=== PATIENT | male | born 1960 | race Caucasian/White ===

== ENCOUNTER → 2019-10-28 07:18 | Outpatient (CLI) | payer BC, SELFPAY ==
[2019-09-27 13:41] VITALS: BMI 30.2
[2019-10-28 08:55] LABS: ALB/GLOB Ratio 1.1 RATIO (0.9-2.4); AST(SGOT) 15 U/L (15-37); Alanine Aminotransfer ALT/SGPT 29 U/L (16-61); Albumin, Serum 3.9 g/dL (3.2-5.0); Alkaline Phosphatase 80 U/L (45-117); Anion Gap 4 (5-15); BUN 17 mg/dL (7-18); BUN/Creat Ratio 16.8 RATIO (10-20); Calcium,Total 8.7 mg/dL (8.5-10.1); Chloride 104 mmol/L (98-107); Cholesterol 219 mg/dL (200); Creatinine, Serum 1.01 mg/dL (0.70-1.30); EST Glomerular Filtration Rate 81 mL/min (>60); Est Glom Filt Rate - Afr Amer 98 mL/min (>60); Globulin 3.6 g/dL (2.2-4.2); Glucose 118 mg/dL (74-106); High Density Lipoprotein 33 mg/dL; Potassium 3.7 mmol/L (3.5-5.1); Protein, Total 7.5 g/dL (6.4-8.2); Sodium Level 138 mmol/L (136-145); Triglycerides 218 mg/dL; Very Low Density Lipoprotein 44 mg/dL (5-40)
--- NOTE | 2019-10-29 07:29 | PFT ---
INTRODUCTION: The patient is a 59-year-old male that presents for pulmonary function studies secondary to a diagnosis of cough. Respiratory therapy reports good patient effort. Bronchodilators were used during testing. INTERPRETATION: Forced expiration spirometry demonstrates no evidence of a large airways obstructive ventilatory defect. There was no significant response to aerosolized bronchodilators, based upon strict ATS criteria. Spirograms are of good quality and plateau gradually indicating slow emptying of the lungs. The respiratory flow volume loop appears normal. Body plethysmography was performed and reveals lung volumes to be within normal limits. Diffusing capacity by single breath CO is also within normal limits as well. IMPRESSION: Normal pulmonary function studies.
== END ==
PROVIDERS: PCP Family Medicine; Referring Provider Family Medicine; Visit Provider Family Medicine
DX: I10 Essential (primary) hypertension (principal); R05 Cough
CPT/HCPCS: 36415; 80053; 80061; 94060; 94726; 94729

== ENCOUNTER → 2020-12-27 11:39 | Outpatient (CLI) | payer BC, SELFPAY ==
[2019-09-27 13:41] VITALS: BMI 30.2
[2020-12-27 15:45] LABS: ALB/GLOB Ratio 1.2 RATIO (0.9-2.4); AST(SGOT) 15 U/L (15-37); Alanine Aminotransfer ALT/SGPT 30 U/L (16-61); Albumin, Serum 3.9 g/dL (3.2-5.0); Alkaline Phosphatase 95 U/L (45-117); Anion Gap 3 (5-15); BUN 11 mg/dL (7-18); BUN/Creat Ratio 12.8 RATIO (10-20); Calcium,Total 8.6 mg/dL (8.5-10.1); Chloride 104 mmol/L (98-107); Cholesterol 113 mg/dL (200); Creatinine, Serum 0.86 mg/dL (0.70-1.30); EST Glomerular Filtration Rate 97 mL/min (>60); Est Glom Filt Rate - Afr Amer 117 mL/min (>60); Globulin 3.3 g/dL (2.2-4.2); Glucose 102 mg/dL (74-106); High Density Lipoprotein 38 mg/dL; PSA,Total - Annual Screen 2.94 ng/mL (0.00-4.00); Potassium 3.5 mmol/L (3.5-5.1); Protein, Total 7.2 g/dL (6.4-8.2); Sodium Level 137 mmol/L (136-145); Triglycerides 86 mg/dL; Very Low Density Lipoprotein 17 mg/dL (5-40)
== END ==
PROVIDERS: PCP Family Medicine; Referring Provider Family Medicine; Visit Provider Family Medicine
DX: E78.00 Pure hypercholesterolemia, unspecified (principal); Z12.5 Encounter for screening for malignant neoplasm of prostate
CPT/HCPCS: 36415; 80053; 80061; 84153; G0103

== ENCOUNTER → 2021-07-03 08:18 | Outpatient (CLI) | payer OTHER, SELFPAY ==
[2021-07-03 10:31] LABS: Anion Gap 7 (5-15); BUN 14 mg/dL (7-18); BUN/Creat Ratio 16.5 RATIO (10-20); Calcium,Total 8.5 mg/dL (8.5-10.1); Chloride 105 mmol/L (98-107); Creatinine, Serum 0.85 mg/dL (0.70-1.30); EST Glomerular Filtration Rate 98 mL/min (>60); Est Glom Filt Rate - Afr Amer 119 mL/min (>60); Glucose 120 mg/dL (74-106); Potassium 3.5 mmol/L (3.5-5.1); Sodium Level 139 mmol/L (136-145)
== END ==
PROVIDERS: PCP Nurse Practitioner Family; Referring Provider Nurse Practitioner Family; Visit Provider Nurse Practitioner Family
DX: Z00.00 Encounter for general adult medical examination without abnormal findings (principal)
CPT/HCPCS: 36415; 80048

== ENCOUNTER → 2021-09-01 17:28 | Outpatient (CLI) | payer OTHER, SELFPAY | PROVIDERS: PCP Nurse Practitioner Family; Visit Provider Family Medicine | DX: U07.1 COVID-19 (principal) | CPT/HCPCS: 87635; U0005; U0003 ==

== ENCOUNTER → 2022-02-09 | Outpatient (CLI) | payer BC, SELFPAY ==
[2022-02-09 15:23] LABS: Absolute Lymphocyte Count 1.01 X10^3/uL (0.83-4.51); Absolute Neutrophil Count 2.8 X10^3/uL (2.0-7.7); Basophil# 0.05 X10^3/uL; Basophil% 1.1 % (0-1); Eosinophil# 0.14 X10^3/uL; Eosinophils% 3.2 % (0-5); Hematocrit 44.2 % (40-54); Hemoglobin 15.3 g/dL (13.0-16.5); Lymphocyte # 1.01 X10^3/ul (0.83-4.51); Lymphocyte % 23.2 % (19-41); Mean Corp Hgb Conc 34.6 g/dL (32-36); Mean Corpuscular Hgb 30.8 pg (27.0-32.0); Mean Corpuscular Volume 89.1 fL (80-94); Mean Platelet Vol. 9.5 fl (6.2-12.0); Monocyte# 0.36 X10^3/uL; Monocyte% 8.3 % (0-10); NRBC Flagged by Analyzer 0 % (0-5); Neutrophil # 2.78 X10^3/uL (2.7-7.7); Platelet Count 183 K/mm3 (150-450); RBC Distribution Width CV 12.7 % (11.6-14.6); RBC Distribution Width SD 41.2 fl (35.1-43.9); Red Blood Count 4.96 M/mm3 (4.6-6.2); White Blood Count 4.4 K/mm3 (4.4-11.0)
[2022-02-09 15:51] LABS: ALB/GLOB Ratio 1.1 RATIO (0.9-2.4); AST(SGOT) 19 U/L (15-37); Alanine Aminotransfer ALT/SGPT 39 U/L (16-61); Albumin, Serum 3.9 g/dL (3.2-5.0); Alkaline Phosphatase 73 U/L (45-117); Anion Gap 9 (5-15); BUN 13 mg/dL (7-18); BUN/Creat Ratio 13.2 RATIO (10-20); Calcium,Total 8.5 mg/dL (8.5-10.1); Chloride 105 mmol/L (98-107); Cholesterol 146 mg/dL (200); Creatinine, Serum 0.99 mg/dL (0.70-1.30); EST Glomerular Filtration Rate 82 mL/min (>60); Est Glom Filt Rate - Afr Amer 100 mL/min (>60); Globulin 3.5 g/dL (2.2-4.2); Glucose 157 mg/dL (74-106); High Density Lipoprotein 36 mg/dL; PSA,Total - Annual Screen 3.57 ng/mL (0.00-4.00); Potassium 3.4 mmol/L (3.5-5.1); Protein, Total 7.4 g/dL (6.4-8.2); Sodium Level 139 mmol/L (136-145); Triglycerides 143 mg/dL; Very Low Density Lipoprotein 29 mg/dL (5-40)
[2022-02-12 11:53] LABS: Hemoglobin A1c 5.1 % (3.8-5.6)
== END | disposition home or self-care (01) ==
LOC: BIMLAB 11:41
PROVIDERS: PCP Internal Medicine; Referring Provider Internal Medicine; Visit Provider Internal Medicine
DX: Z00.00 Encounter for general adult medical examination without abnormal findings (principal); I10 Essential (primary) hypertension; R73.9 Hyperglycemia, unspecified
CPT/HCPCS: 36415; 80053; 80061; 83036; 84153; 85025; G0103

== ENCOUNTER → 2022-05-04 | Outpatient (CLI) | payer BC, SELFPAY ==
[2022-05-04 12:35] LABS: Anion Gap 7 (5-15); BUN 16 mg/dL (7-18); BUN/Creat Ratio 15.2 RATIO (10-20); Calcium,Total 8.4 mg/dL (8.5-10.1); Chloride 102 mmol/L (98-107); Creatinine, Serum 1.05 mg/dL (0.70-1.30); EST Glomerular Filtration Rate 77 mL/min (>60); Est Glom Filt Rate - Afr Amer 93 mL/min (>60); Glucose 117 mg/dL (74-106); Potassium 3.3 mmol/L (3.5-5.1); Sodium Level 138 mmol/L (136-145)
== END | disposition home or self-care (01) ==
LOC: BIMLAB 08:46
PROVIDERS: PCP Internal Medicine; Referring Provider Internal Medicine; Visit Provider Internal Medicine
DX: I10 Essential (primary) hypertension (principal)
CPT/HCPCS: 36415; 80048

== ENCOUNTER → 2022-06-14 | Outpatient (CLI) | payer BC, SELFPAY ==
[2022-06-14 15:16] LABS: Anion Gap 9 (5-15); BUN 16 mg/dL (7-18); BUN/Creat Ratio 15.7 RATIO (10-20); Calcium,Total 9.1 mg/dL (8.5-10.1); Chloride 103 mmol/L (98-107); Creatinine, Serum 1.02 mg/dL (0.70-1.30); EST Glomerular Filtration Rate 79 mL/min (>60); Est Glom Filt Rate - Afr Amer 96 mL/min (>60); Glucose 136 mg/dL (74-106); Potassium 3.7 mmol/L (3.5-5.1); Sodium Level 141 mmol/L (136-145)
== END | disposition home or self-care (01) ==
LOC: BIMLAB 11:45
PROVIDERS: PCP Internal Medicine; Referring Provider Internal Medicine; Visit Provider Internal Medicine
DX: I10 Essential (primary) hypertension (principal)
CPT/HCPCS: 36415; 80048

== ENCOUNTER → 2023-03-23 | Outpatient (CLI) | payer BC, SELFPAY ==
[2023-03-23 07:35] LABS: Absolute Lymphocyte Count 1.06 X10^3/uL (0.83-4.51); Absolute Neutrophil Count 5.9 X10^3/uL (2.0-7.7); Basophil# 0.07 X10^3/uL; Basophil% 0.9 % (0-1); Eosinophil# 0.23 X10^3/uL; Eosinophils% 2.9 % (0-5); Hematocrit 44.5 % (40-54); Hemoglobin 15.2 g/dL (13.0-16.5); Lymphocyte # 1.06 X10^3/ul (0.83-4.51); Lymphocyte % 13.4 % (19-41); Mean Corp Hgb Conc 34.2 g/dL (32-36); Mean Corpuscular Hgb 29.8 pg (27.0-32.0); Mean Corpuscular Volume 87.3 fL (80-94); Mean Platelet Vol. 9.1 fl (6.2-12.0); Monocyte# 0.68 X10^3/uL; Monocyte% 8.6 % (0-10); NRBC Flagged by Analyzer 0 % (0-5); Neutrophil # 5.85 X10^3/uL (2.7-7.7); Neutrophil % 73.7 % (47-70); Platelet Count 226 K/mm3 (150-450); RBC Distribution Width CV 12.7 % (11.6-14.6); RBC Distribution Width SD 40.5 fl (35.1-43.9); White Blood Count 7.9 K/mm3 (4.4-11.0)
[2023-03-23 08:30] LABS: ALB/GLOB Ratio 0.9 RATIO (0.9-2.4); AST(SGOT) 9 U/L (15-37); Alanine Aminotransfer ALT/SGPT 21 U/L (16-61); Albumin, Serum 3.5 g/dL (3.2-5.0); Alkaline Phosphatase 87 U/L (45-117); Anion Gap 5 (5-15); BUN 15 mg/dL (7-18); BUN/Creat Ratio 16.3 RATIO (10-20); Chloride 107 mmol/L (98-107); Cholesterol 123 mg/dL (200); Creatinine, Serum 0.92 mg/dL (0.70-1.30); EST Glomerular Filtration Rate 89 mL/min (>60); Est Glom Filt Rate - Afr Amer 108 mL/min (>60); Globulin 3.9 g/dL (2.2-4.2); Glucose 130 mg/dL (74-106); High Density Lipoprotein 33 mg/dL; Potassium 3.7 mmol/L (3.5-5.1); Protein, Total 7.4 g/dL (6.4-8.2); Sodium Level 139 mmol/L (136-145); Triglycerides 90 mg/dL; Very Low Density Lipoprotein 18 mg/dL (5-40)
== END | disposition home or self-care (01) ==
LOC: LAB 07:09
PROVIDERS: PCP Internal Medicine; Referring Provider Internal Medicine; Visit Provider Internal Medicine
DX: I10 Essential (primary) hypertension (principal); E78.5 Hyperlipidemia, unspecified
CPT/HCPCS: 36415; 80053; 80061; 85025

== ENCOUNTER → 2023-07-11 | Outpatient (CLI) | payer BC, SELFPAY ==
[2023-07-11 17:14] LABS: Anion Gap 4 (5-15); BUN 20 mg/dL (7-18); BUN/Creat Ratio 21.5 RATIO (10-20); Calcium,Total 9.1 mg/dL (8.5-10.1); Chloride 108 mmol/L (98-107); Creatinine, Serum 0.93 mg/dL (0.70-1.30); EST Glomerular Filtration Rate 88 mL/min (>60); Est Glom Filt Rate - Afr Amer 106 mL/min (>60); Glucose 101 mg/dL (74-106); PSA,Total - Annual Screen 5.77 ng/mL (0.00-4.00); Potassium 3.6 mmol/L (3.5-5.1); Sodium Level 140 mmol/L (136-145)
== END | disposition home or self-care (01) ==
LOC: BIMLAB 15:40
PROVIDERS: PCP Internal Medicine; Referring Provider Internal Medicine; Visit Provider Internal Medicine
DX: N40.0 Benign prostatic hyperplasia without lower urinary tract symptoms (principal); I10 Essential (primary) hypertension
CPT/HCPCS: 36415; 80048; 84153; G0103

== ENCOUNTER → 2024-01-09 | Outpatient (CLI) | payer BC, SELFPAY ==
[2024-01-09 17:20] LABS: Anion Gap 5 (5-15); BUN 16 mg/dL (7-18); BUN/Creat Ratio 17.1 RATIO (10-20); Calcium,Total 8.8 mg/dL (8.5-10.1); Chloride 103 mmol/L (98-107); Creatinine, Serum 0.93 mg/dL (0.70-1.30); EST Glomerular Filtration Rate 87 mL/min (>60); Est Glom Filt Rate - Afr Amer 106 mL/min (>60); Glucose 107 mg/dL (74-106); PSA,Total- Diagnostic 7.23 ng/mL (0.0-4.0); Potassium 3.6 mmol/L (3.5-5.1); Sodium Level 137 mmol/L (136-145)
== END | disposition home or self-care (01) ==
LOC: BIMLAB 16:00
PROVIDERS: PCP Internal Medicine; Visit Provider Internal Medicine
DX: I10 Essential (primary) hypertension (principal); N40.0 Benign prostatic hyperplasia without lower urinary tract symptoms
CPT/HCPCS: 36415; 80048; 84153

== ENCOUNTER → 2024-02-20 | Outpatient (CLI) | payer BC, SELFPAY ==
[2024-02-22 09:08] LABS: PSA, Free 1.08 ng/mL; PSA, Free % 20.5 % (.)
== END | disposition home or self-care (01) ==
LOC: LAB 15:04
PROVIDERS: PCP Internal Medicine; Referring Provider Nurse Practitioner; Visit Provider Nurse Practitioner
DX: R97.20 Elevated prostate specific antigen [PSA] (principal)
CPT/HCPCS: 36415; 84153; 84154

== ENCOUNTER → 2024-06-20 | Outpatient (CLI) | payer BC, SELFPAY ==
[2024-06-20 10:12] LABS: Basophil# 0.09 X10^3/uL; Basophil% 1.3 % (0-1); Eosinophil# 0.15 X10^3/uL; Eosinophils% 2.1 % (0-5); Hematocrit 47.8 % (40-54); Hemoglobin 17.2 g/dL (13.0-16.5); Lymphocyte % 18.1 % (19-41); Mean Corpuscular Hgb 30.3 pg (27.0-32.0); Mean Corpuscular Volume 84.3 fL (80-94); Mean Platelet Vol. 9.4 fl (6.2-12.0); Monocyte# 0.61 X10^3/uL; Monocyte% 8.5 % (0-10); NRBC Flagged by Analyzer 0 % (0-5); Neutrophil % 69.6 % (47-70); Platelet Count 199 K/mm3 (150-450); RBC Distribution Width CV 12.3 % (11.6-14.6); RBC Distribution Width SD 37.2 fl (35.1-43.9); Red Blood Count 5.67 M/mm3 (4.6-6.2); White Blood Count 7.2 K/mm3 (4.4-11.0)
[2024-06-20 11:14] LABS: ALB/GLOB Ratio 1.3 RATIO (0.9-2.4); AST(SGOT) 9 U/L (15-37); Alanine Aminotransfer ALT/SGPT 19 U/L (16-61); Albumin, Serum 4.1 g/dL (3.2-5.0); Alkaline Phosphatase 79 U/L (45-117); Anion Gap 8 (5-15); BUN 19 mg/dL (7-18); BUN/Creat Ratio 18.8 RATIO (10-20); Calcium,Total 9.2 mg/dL (8.5-10.1); Chloride 101 mmol/L (98-107); Cholesterol 120 mg/dL (200); Creatinine, Serum 1.01 mg/dL (0.70-1.30); EST Glomerular Filtration Rate 80 mL/min (>60); Est Glom Filt Rate - Afr Amer 96 mL/min (>60); Globulin 3.1 g/dL (2.2-4.2); Glucose 134 mg/dL (74-106); High Density Lipoprotein 39 mg/dL; Potassium 3.2 mmol/L (3.5-5.1); Protein, Total 7.2 g/dL (6.4-8.2); Sodium Level 139 mmol/L (136-145); Triglycerides 121 mg/dL; Very Low Density Lipoprotein 24 mg/dL (5-40)
== END | disposition home or self-care (01) ==
LOC: LAB 09:22
PROVIDERS: PCP Internal Medicine; Referring Provider Internal Medicine; Visit Provider Internal Medicine
DX: I10 Essential (primary) hypertension (principal)
CPT/HCPCS: 36415; 80053; 80061; 85025

== ENCOUNTER → 2024-09-01 | Outpatient (CLI) | payer BC, SELFPAY ==
[2024-09-01 17:03] LABS: Anion Gap 4 (5-15); BUN 13 mg/dL (7-18); BUN/Creat Ratio 14.4 RATIO (10-20); Calcium,Total 8.6 mg/dL (8.5-10.1); Chloride 105 mmol/L (98-107); EST Glomerular Filtration Rate 91 mL/min (>60); Est Glom Filt Rate - Afr Amer 110 mL/min (>60); Glucose 83 mg/dL (74-106); Potassium 3.6 mmol/L (3.5-5.1); Sodium Level 139 mmol/L (136-145)
[2024-09-01 17:08] LABS: PSA,Total- Diagnostic 5.27 ng/mL (0.0-4.0)
== END | disposition home or self-care (01) ==
LOC: BIMLAB 15:56
PROVIDERS: PCP Internal Medicine; Referring Provider Nurse Practitioner; Visit Provider Nurse Practitioner
DX: R97.20 Elevated prostate specific antigen [PSA] (principal)
CPT/HCPCS: 36415; 80048; 84153

== ENCOUNTER → 2024-12-08 | Outpatient (CLI) | payer BC, SELFPAY ==
--- NOTE | 2024-12-08 13:19 | RAD_ITS ---
PROCEDURE: SHOULDER MIN 2 VIEWS REASON FOR EXAM: PAIN Remote injury. TECHNIQUE: Four views of the right shoulder were obtained. COMPARISON: None. FINDINGS: RIGHT SHOULDER: No fracture. No suspicious bone lesion. Normal alignment of the acromioclavicular and glenohumeral joints. Soft tissues are unremarkable. RAD/Shoulder min 2 Views IMPRESSION: NO ACUTE FRACTURE OR DISLOCATION. Reading Location: [facility]
== END | disposition home or self-care (01) ==
LOC: MTRAD 13:19
PROVIDERS: PCP Internal Medicine; Referring Provider Physician Assistant; Visit Provider Physician Assistant
DX: R52 Pain, unspecified (principal)
CPT/HCPCS: 73030

== ENCOUNTER 2025-01-05 16:00 | Outpatient (RCR) | payer OTHER, SELFPAY ==
--- NOTE | 2024-12-23 17:00 | HP.PTEVAL_ITS ---
Patient's Visit Information Visit Information Visit Information: LANI SILVA III is a 64 year old M referred to Physical Therapy by JAREK Leon with a diagnosis of R shoulder strain. Date of Evaluation: 12/23/24 Physical Therapist: Darío Rudd DPT Visit Plan Frequency: 2x /Week Duration: 6 Weeks Plan: Phase III RTC strengthening, include biceps, supraspintus and deltoid progressive loading. HEP at IE: shoulder ER/IR with band, mid row, Sl shoulder ER. Subjective Subjective: Pt. is here today for his initial evaluation with diagnosis of R shoulder strain. 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 Pt. reports that his R shoulder is slowly getting better. Increases pain with stearing wheel like motion, anything over head. He reports most of his pain at his anterior shoulder. Pt. report that his R shoulder does wake him up at times. He is currenlty on light duty at work, 40lb lifting restriction with avoiding over head movements. He reports no major issues bellow his shoulder. Pain R shoulder: Pain Intensity (Out of 10): 1 Comment: anterior sub acromial space Objective Objective: POSTURE: Pt. has fairly normal posture, slight rounded shoulders. PALPATIO: Pt. has some increased soreness at anterior subacromial space, near biceps and suprapinatus tendons. NEURO: normal throughout. ROM: R shoulder: flexion 170deg, abd 175deg, functional ER C5, functional IR L3 Pt. had a painful arc and increased pain at end ranged. MMT: L shoulder: flexion 32.2#, abd 24.9#, ER 13.3#, IR 19.9# R shoulder: flexion 29.1#, abd 18.8#, ER 16.6#, IR 16.9# Special Tests R Shoulder Drop Sign - IS Test: Negative R Shoulder Empty Can - SS: Negative R Shoulder Belly Press - SupScap: Negative R Shoulder Wan Franko - Impingement: Positive R Shoulder Speeds Test - Labrum/Biceps: Positive Balance/Special Test Scores Quick DASH Score: 25.0000 Goals Goal 1:: LTG: Pt. to be I with HEP. Goal Time Frame: 4-6 Weeks Goal 2:: STG: Pt. to have full R shoulder ROM without increase in symptoms. Goal Time Frame: 2-4 Weeks Goal 3:: LTG: Pt. to have symmetrical strength between B shoulders without increase in symptoms. Goal Time Frame: 4-6 Weeks Goal 4:: LTG: Pt. to have Rehabilitation Potential Physical Therapy Diagnosis: Pt. has signs and symptoms consistent with R shoulder strain. Pt. has some increased pain with stress to the biceps and supraspinatus musculature. No signs of rupture. Pt. would benefit from PT to slowly progress loading of RUE in order to get back to all work activities without limitations. Rehabilitation Potential: Excellent Anticipated Interventions Patient/Client Instruction: Educate patient on: Condition, Plan of Care, Risk Factors and Benefits of Fitness Program For the Purpose of:: To facilitate caregiver knowledge, To improve self management, To prevent re-injury, To improve ability to perform tasks related to life management and To improve tolerance to ADL's Therapeutic Exercise to Include: Strength training, Power training, Body mechanics, Postural training and Flexibilty training For the Purpose of:: To decrease pain, To decrease swelling/inflammation, To i ncrease ROM, To improve nutrient delivery to tissue, To increase oxygenation perfusion, To improve muscle performance and motor function, To improve ability to perform ADL's and To increase tolerance to activity/condition/position Text: Thank you for the opportunity to evaluate your patient. For Medicare and Medicare HMO plans, please review the plan of care and approve it. It will need to be FAXED BACK to us at [phone] for Medicare purposes. For Medicare only, by signing this I certify the plan of care. Please let me know if there are questions or concerns regarding this plan of care. Physician Signature: Date:
== END 2025-01-05 19:00 | disposition home or self-care (01) ==
LOC: PT 16:00
PROVIDERS: PCP Internal Medicine; Referring Provider Physician Assistant; Visit Provider Physician Assistant
DX: S46.911D Strain of unspecified muscle, fascia and tendon at shoulder and upper arm level, right arm, subsequent encounter (principal)
CPT/HCPCS: 97110; 97161

== ENCOUNTER → 2025-03-04 | Outpatient (CLI) | payer BC, SELFPAY ==
[2025-03-04 17:29] LABS: Anion Gap 12 (5-15); BUN 18 mg/dL (4-19); BUN/Creat Ratio 17.4 RATIO (10-20); Calcium,Total 8.7 mg/dL (7.6-11.0); Carbon Dioxide 24.9 mmol/L (21.0-32.0); Chloride 101 mmol/L (98-108); Creatinine, Serum 1.02 mg/dL (0.70-1.20); EST Glomerular Filtration Rate 83 (>60); Glucose 97 mg/dL (70-99); Potassium 3.4 mmol/L (3.3-5.1); Sodium Level 138 mmol/L (133-145)
== END | disposition home or self-care (01) ==
LOC: LAB 16:17
PROVIDERS: PCP Internal Medicine; Referring Provider Urology; Visit Provider Urology
DX: R97.20 Elevated prostate specific antigen [PSA] (principal); I10 Essential (primary) hypertension
CPT/HCPCS: 36415; 80048; 84153

== ENCOUNTER → 2025-07-20 | Outpatient (CLI) | payer BC, SELFPAY ==
--- NOTE | 2025-07-20 07:38 | MRI_ITS ---
EXAM: PELVIS W/WO CONTRAST 07/20/2025 CLINICAL HISTORY: ELEVATED PROSTATE SPECIFIC ANTIGEN (PSA). TECHNIQUE: Procedure Code: [id number] Modality: MR Procedure: PELVIS W/WO CONTRAST Multiplanar and multisequence images were obtained intravenous gadolinium contrast. CONTRAST: Clariscan VOLUME: 19 mL COMPARISON: None FINDINGS: Image quality:Diagnostic Biopsies: None PSA:7.50ng/mL Prostate size: 4.2 x 5.6 x 4.1cms Prostate volume: 50.49mL PSA density:0.149 ng/mL/mL Prostate Transition zone: PI-RADS 2 findings. Benign prostatic hyperplasia with focus of hemorrhage in the right transition zone anteriorly. *Lesion none *T2 score: 2; mostly encapsulated nodule or a homogeneous circumscribed nodule without encapsulation, or a homogeneous mildly hypointense area between nodules. *DWI score: 1; no abnormality on ADC or high b-value DWI. *DCE: Negative. *Overall PI-RADS: PI-RADS 2. *Extracapsular extension:Not applicable. Peripheral Zone: Background changes of likely prostatitis (PI-RADS 2). *Lesion none. *T2 score: 2; linear or wedge-shaped hypointensity or diffuse mild hypointensity, usually indistinct margin. *DWI score: 1; no abnormality on ADC or high b-value DWI. *DCE: Negative. *Overall PI-RADS: PI-RADS 2. *Extracapsular extension:No gross extracapsular extension. Neurovascular bundles: Unremarkable. Seminal vesicles: Unremarkable. Bladder: Underdistended and suboptimally evaluated, grossly unremarkable. Lymph nodes: Unremarkable. Bones: No destructive or frankly suspicious bony lesions identified on nondedicated evaluation. Other: Fat containing inguinal hernias [id number]. MRI/Pelvis W/WO Contrast IMPRESSION: Benign prostatic hyperplasia. No focal suspicious lesion. PI-RADS 2 = low-cli nically significant cancer unlikely. Reading Location: [facility]
--- NOTE | 2025-07-20 07:43 | RAD_ITS ---
PROCEDURE: ORBITS FOR FOREIGN BODY 07/20/2025 REASON FOR EXAM: HX METAL TO EYE,,,PREV MRI TECHNIQUE: Procedure Code: [id number]. Modality: DX Procedure: ORBITS FOR FOREIGN BODY COMPARISON: None FINDINGS: Bones: Normal Sinuses: Clear Additional findings: No radiopaque foreign body in the orbits RAD/Orbits for Foreign Body IMPRESSION: No metallic radiopaque foreign body seen within the orbits. Reading Location: [facility]
--- OUTSIDE RECORDS SUMMARY | 2025-07-20 07:43 | XMS RPT_ITS | CCD ---
Author Organization [facility] Care Team Providers Care [place] Name Role Phone Brittany ICU MANAGER, ICU MANAGER-C Roxanna Primary Care Provider [phone] Brittany ICU MANAGER, ICU MANAGER-C Roxanna Referring Provider Dr. Ceasar Cristobal Attending Provider [phone] Dr. Ceasar Cristobal Primary Care Provider 1(33 0) Dr. Ceasar Cristobal Referring Provider [phone])2 Dr. Ceasar Cristobal Attending Provider [phone])2 Dr. Ceasar Cristobal Primary Care Provider 1(33 0) Dr. Ceasar Cristobal Attending Provider [phone] Dr. Ceasar Cristobal Referring Provider [phone] Dr. Ceasar Cristobal Primary Care Provider 1(33 0) Dr. Ceasar Cristobal Attending Provider [phone])2 Dr. Ceasar Cristobal Referring Provider [phone])2 Dr. Ceasar Cristobal Primary Care Provider 1(33 0) Dr. Ceasar Cristobal Attending Provider [phone])2 Dr. Ceasar Cristobal Referring Provider [phone])2 Dr. Ceasar Cristobal MD Primary Care Provider Cecille Bang Attending Provider Cecille Bang Referring Provider Dr. Ceasar Cristobal MD Attending Provider 1(33 0) Oleghe MD, Dr. Mcdonough Referring Provider 1(33 0) Sandro Kim Attending Provider Sandro Kim Referring Provider [phone] Levar BEAVER, Dr. Mcdonough Primary Care Provider Levar BEAVER, Dr. Mcdonough Referring Provider 1(33 0) Levar BEAVER, Dr. Mcdonough Attending Provider 1(33 0) Levar BEAVER, Dr. Mcdonough Other Provider [phone])2 Monica BEAVER, Dr. Azam Allan Attending Provider Monica BEAVER, Dr. Azam Allan Referring Provider Levar BEAVER, Dr. Mcdonough Primary Care Provider Sandro Kim Attending Provider Sandro Kim Referring Provider Levar BEAVER, Dr. Mcdonough Referring Provider 1(33 0) Levar BEAVER, Dr. Mcdonough Primary Care Physician Levar BEAVER, Dr. Mcdonough Nurse Practitioner 1(33 0) Monica BEAVER, Dr. Azam Allan Attending Physician Levar BEAVER, Dr. Mcdonough Attending Physician 1(3 [phone]) Levar BEAVER, Dr. Mcdonough Referring Provider 1(33 0) Oleghe, Efewongbe Attending Unavailable Oleghe, Efewongbe Referring Unavailable Oleghe, Efewongbe Primary Care Unavailable Oleghe, Efewongbe Primary Care Unavailable Oleghe, Efewongbe Attending Unavailable Oleghe, Efewongbe Referring Unavailable MonicaAzam Attending Unavailable Azam Durant Referring Unavailable Oleghe, Efewongbe Primary Care Unavailable Oleghe, Efewongbe Primary Care Unavailable Sandro Kim Attending Unavailable Oleghe, Efewongbe Referring Unavailable Sandro Kim Attending Unavailable Sandro Kim Referring Unavailable Oleghe, Efewongbe Primary Care Unavailable Sandro Kim Referring Unavailable Oleghe, Efewongbe Primary Care Unavailable Sandro Kim Attending Unavailable Oleghe, Efewongbe Consulting Unavailable Azam Durant Attending Unavailable Azam Durant Referring Unavailable Oleghe, Efewongbe Primary Care Unavailable Oleghe, Efewongbe Primary Care Unavailable Cecille Bang Attending Unavailable CeresCecille Referring Unavailable Sandro Kim Attending Unavailable Oleghe, Efewongbe Primary Care Unavailable Oleghe, Efewongbe Referring Unavailable Oleghe, Efewongbe Primary Care Unavailable Sandro Kim Attending Unavailable Oleghe, Efewongbe Referring Unavailable Oleghe, Efewongbe Primary Care Unavailable Sandro Kim Attending Unavailable Oleghe, Efewongbe Referring Unavailable Oleghe, Efewongbe Primary Care Unavailable Oleghe, Efewongbe Attending Unavailable Oleghe, Efewongbe Referring Unavailable Medications Current Medications Medication Drug Class(es) Dates Sig (Normalized) Sig (Original) hydroCHLOROthiazide 25 mg / triamterene 37.5 mg oral tablet (20 sources) Potassium-spari ng Diuretic, Thiazide Diuretic Start: 01-07-2025 End: 06-16-2025 Triamterene-Hydr ochlorothiazid 37.5-25 mg tablet Active 1 {tbl} PO EVERY MORNING 90 0 June 16, 2025 7:42am Complies with drug therapy Start: 03-14-2022 End: 12-08-2024 Triamterene-Hydrochlorothiaz id 37.5-25 mg tablet Discontinued 1 {tbl} PO EVERY MORNING 90 3 December 30, 2023 8:01am May 28, 2024 4:53pm Start: 03-14-2022 End: 12-30-2023 take 1 tablet by mouth once daily in the morning Triamterene-Hydrochlorothiazid Discontin ued 1 TABLET PO EVERY MORNING 60 June 05, 2022 9:09am December 17, 2022 3:30pm ibuprofen 200 mg oral capsule (4 sources) Nonsteroidal Anti-inflammatory Drug Start: 12-15-2024 take 1 capsule by mouth every six hours as needed Ibuprofen 200 mg capsule Active 200 mg PO EVERY 6 HOURS as needed December 15, 2024 12:00am Complies with drug therapy loratadine 10 mg oral tablet (9 sources) Start: 03-14-2022 take 1 tablet by mouth once daily as needed Loratadine 10 mg tablet Active 10 mg PO DAILY as needed March 14, 2022 12:00am Complies with drug therapy potassium chloride 10 meq extended release oral tablet (7 sources) Start: 01-07-2025 take 1 tablet by mouth once daily Potassium Chloride 10 mEq tablet extended release Active 10 meq PO daily 90 January 07, 2025 11:06pm Complies with drug therapy Start: 06-22-2024 End: 01-07-2025 take 2 tablets by mouth once daily, then take 1 tablet by mouth once daily Potassium Chloride 10 mEq tablet extended release Discontinued 10 meq PO daily 90 June 22, 2024 12:00am January 07, 2025 11:06pm Take 2 tabs daily for 2 weeks then cut down to 1 tab daily Completed/Discontinued Medications Medication Drug Class(es) Dates Sig (Normalized) Sig (Original) amLODIPine 5 mg oral tablet (20 sources) Dihydropyridine Calcium Channel Jerome Start: 03-14-2022 End: 03-04-2025 take 1 tablet by mouth once daily Amlodipine 5 mg tablet Discontinued 5 mg PO DAILY 90 December 30, 2023 8:01am March 04, 2025 1:51pm Start: 02-09-2022 End: 03-14-2022 take 1 tablet by mouth once daily Amlodipine 10 mg tablet Discontinued 10 mg PO DAILY 90 February 09, 2022 11:29am March 14, 2022 11:31am Start: 01-30-2022 End: 02-09-2022 take 1 tablet by mouth once daily Amlodipine 5 mg tablet Discontinued 5 mg PO DAILY January 30, 2022 12:00am February 09, 2022 11:31am amoxicillin 875 mg oral tablet (10 sources) Penicillin-class Antibacterial Start: 09-27-2019 End: 02-09-2022 take 1 tablet by mouth twice daily Amoxicillin 875 mg tablet Discontinued 875 mg PO TWICE A DAY September 27, 2019 1:00am February 09, 2022 10:59am escitalopram 5 mg oral tablet (20 sources) Serotonin Reuptake Inhibitor Start: 12-17-2022 End: 05-28-2024 take 1 tablet by mouth once daily Escitalopram Oxalate 5 mg tablet Discontinued 5 mg PO DAILY 90 3 March 26, 2023 11:44am May 28, 2024 4:53pm Start: 12-17-2022 End: 12-17-2022 take 5 mg by mouth once daily Escitalopram Oxalate 10 mg tablet Discontinued 5 mg PO DAILY December 17, 2022 10:16am December 17, 2022 3:26pm Start: 12-17-2022 End: 12-17-2022 take 5 mg by mouth once daily Escitalopram Oxalate Dis continued 5 MG PO DAILY December 17, 2022 10:16am December 17, 2022 3:26pm Start: 09-27-2019 End: 12-17-2022 take 1 tablet by mouth once daily Escitalopram Oxalate 10 mg tablet Discontinued 10 mg PO DAILY 90 August 30, 2022 9:34am December 17, 2022 10:18am Start: 09-27-2019 End: 05-01-2022 Escitalopram Oxalate Discont inued MG PO September 27, 2019 1:00am May 01, 2022 11:34am losartan potassium 50 mg oral tablet (20 sources) Angiotensin 2 Receptor Jerome Start: 02-09-2022 End: 06-16-2025 take 1 tablet by mouth twice daily Losartan 50 mg tablet Discontinued 0 .ROUTE .COMPLEX 180 June 15, 2025 10:14am June 16, 2025 7:43am take 1 tablet by mouth twice a day Start: 02-09-2022 End: 02-09-2022 take 2 tablets by mouth once daily Losartan 50 mg tablet Discontinued 100 mg PO DAILY 90 February 09, 2022 11:30am February 09, 2022 11:38am Start: 02-09-2022 End: 02-09-2022 take 100 mg by mouth once daily Losartan Discontinued 100 MG PO DAILY 90 February 09, 2022 11:30am February 09, 2022 11:38am Start: 09-27-2019 End: 02-09-2022 Losartan 100 mg tablet Disco ntinued PO September 27, 2019 1:00am February 09, 2022 10:58am Start: 09-27-2019 End: 02-09-2022 Losartan Discontinued PO Aug 1:00am February 09, 2022 10:58am metoprolol tartrate 100 mg oral tablet (10 sources) beta-Adrenergic Jerome Start: 09-27-2019 End: 02-09-2022 Metoprolol Tartrate 100 mg tablet Discontinued PO September 27, 2019 1:00am February 09, 2022 10:58am Start: 09-27-2019 End: 02-09-2022 Metoprolol Tartrate Disconti nued PO September 27, 2019 1:00am February 09, 2022 10:58am rosuvastatin calcium 10 mg oral tablet (20 sources) HMG-CoA Reductase Inhibitor Start: 01-30-2022 End: 01-07-2025 take 1 tablet by mouth once daily Rosuvastatin 10 mg tablet Discontinued 10 mg PO DAILY 90 3 December 30, 2023 8:01am January 07, 2025 11:06pm Problems Active Problems Problem Classification Problem Date Documented Da te Episodic/Chronic Adjustment disorders (9 sources) Grief finding; Translations: [Adjustment disorder with depressed mood] 12-17-2022 Chronic Anxiety disorders (13 sources) Generalized anxiety disorder; Translations: [Generalized anxiety disorder] Onset: 10-14-2024 04-03-2023 Chronic Diabetes mellitus without complication (11 sources) Hyperglycemia; Translations: [Hyperglycemia, unspecified] 02-12-2022 Episodic Disorders of lipid metabolism (19 sources) Hyperlipidemia; Translations: [Hyperlipidemia, unspecified] Onset: 10-14-2024 Chronic Essential hypertension (20 sources) Hypertensive disorder; Translations: [Essential (primary) hypertension] Onset: 07-02-2025 Chronic Fluid and electrolyte disorders (4 sources) Hypokalemia; Translations: [Hypokalemia] 06-22-2024 Episodic Heart valve disorders (10 sources) Mitral valve prolapse; Translations: [Nonrheumatic mitral (valve) prolapse] 01-30-2022 Chronic Hyperplasia of prostate (12 sources) Benign prostatic hyperplasia; Translations: [Benign prostatic hyperplasia without lower urinary tract symptoms] Onset: 10-14-2024 07-10-2023 Chronic Other ear and sense organ disorders (5 sources) Impacted cerumen; Translations: [Impacted cerumen, left ear] 07-10-2023 Episodic Other ear and sense organ disorders (1 source) Impacted cerumen, left ear; Translations: [Impacted cerumen] 07-10-2023 Episodic Other ear and sense organ disorders (1 source) Impacted cerumen in left ear; Translations: [Impacted cerumen, left ear] 07-10-2023 Episodic Other screening for suspected conditions (not mental disorders or infectious disease) (18 sources) Patient encounter status; Translations: [Encounter for screening for malignant neoplasm of colon] Onset: 03-10-2025 02-09-2022 Episodic Other upper respiratory disease (10 sources) Seasonal allergy; Translations: [Other seasonal allergic rhinitis] 01-30-2022 Chronic Residual codes; unclassified (10 sources) Obstructive sleep apnea syndrome; Translations: [Obstructive sleep apnea (adult) (pediatric)] 02-09-2022 Chronic Residual codes; unclassified (10 sources) Sleep apnea; Translations: [Sleep apnea, unspecified] 02-09-2022 Chronic Residual codes; unclassified (2 sources) Obstructive sleep apnea (adult) (pediatric); Translations: [Obstructive sleep apnea (adult)(pediatric)] Chronic Residual codes; unclassified (9 sources) Bilateral lower limb edema; Translations: [Localized edema] 03-14-2022 Episodic Residual codes; unclassified (3 sources) Localized edema; Translations: [Edema] Episodic Residual codes; unclassified (5 sources) Tobacco user; Translations: [Tobacco use] 01-08-2024 Episodic Residual codes; unclassified (1 source) Tobacco use; Translations: [Tobacco use disorder] 01-08-2024 Episodic Sprains and strains (7 sources) Shoulder strain; Translations: [Strain of unspecified muscle, fascia and tendon at shoulder and upper arm level, right arm, initial encounter] Onset: 04-26-2025 12-08-2024 Episodic Unclassified (2 sources) S46.911A - Strain of unspecified muscle, fascia and tendon at shoulder and upper arm level, right arm, initial encounter Unclassified (2 sources) Patient encounter status Unclassified (1 source) Z00.00 - Encounter for general adult medical examination without abnormal findings Unclassified (1 source) Z12.11 - Encounter for screening for malignant neoplasm of colon Past or Other Problems Problem Classification Problem Date Documented Da te Episodic/Chronic Residual codes; unclassified (1 source) Pain, unspecified; Translations: [Pain, unspecified] Onset: 02-11-2025 Episodic Results Test Name Value Interpretation Reference Range Facility Internal Medicine Office Vis iton 07-02-2025 Internal Medicine Office Visit [facility] Internal Medicine [address] [place], [place] [address] OFFICE VISIT Date of Service: 07/02/25 MR#: [id number] Acct: [id number] Name: LANI SILVA III Rep #: [id number] : 1960 Provider: Dr. Ceasar hart MD Age/Sex: 64/M Location: [facility] Status: Signed Intake Vital Signs 01/07/25 16:33 07/02/25 14:42 Height 6 ft 6 ft Weight: 206 lb 4 oz BMI 27.9 BP 132/82 H Blood Pressure Location Lt brachial Position Sitting Respiration 16 Pulse 82 Pulse Source Monitor Temp 99.3 F H Temp Source Temporal Pulse Oximetry (%) 97 Oxygen Delivery Method room air Intake Visit Reasons: FOLLOW UP Chief Complaint: Follow-up Oil Developer Required: No Accompanied by: Self Is patient in pain?: No Allergies No Known Allergies Allergy (Verified 07/02/25 14:42) Medications ???Medication ???Instructions ???Recorded ???Confirmed ???Type loratadine 10 mg tablet 10 mg PO DAILY PRN 03/14/22 History ibuprofen 200 mg capsule 200 mg PO Q6H PRN 12/15/24 5 History potassium chloride 10 mEq 10 meq PO QDAY #90 tabs 01/07/25 1 Rx tablet,extended release rosuvastatin 10 mg tablet 10 mg PO DAILY #90 TABLETS 5 07/02/25 Rx amlodipine 5 mg tablet 5 mg PO DAILY #90 TABLETS 03/04/25 07/02/25 Rx losartan 50 mg tablet See Rx Instructions .Route 5 07/02/25 Rx .COMPLEX #180 tabs triamterene 37.5 1 tab PO QAM #90 TABLETS 06/16/25 07/02/25 Rx mg-hydrochlorothiazide 25 mg tablet PFSH Medical History Right shoulder strain Hypokalemia Elevated PSA Tobacco abuse Impacted cerumen of left ear BPH (benign prostatic hyperplasia) Generalized anxiety disorder Grief reaction Hyperlipidemia Bilateral lower extremity edema Hyperglycemia Obstructive sleep apnea Health care maintenance Colon cancer screening Sleep apnea History of fracture of phalanx of finger History of fracture of arm History of mononucleosis Mitral valve prolapse Seasonal allergies Asthma High cholesterol Shoulder pain Hypertension Surgical History History of open reduction and internal fixation (ORIF) procedure History of nasal surgery Family History Grandfather Alcoholism in family Lymphoma Grandmother Alcoholism in family Mother Anxiety Family history of cervical cancer Diabetes Father Diabetes Social History Smoking Status: Former smoker Tobacco: How many years used: 15 alcohol intake: current alcohol intake frequency: a few times a week Alcohol type: beer substance use type: does not use what type of physical activity do you participate in: bicycling frequency: 3-4 times per week HPI HPI Chief Complaint: Follow-up Details: LANI SILVA, is a 64-year-old male presenting for follow up of his chronic medical conditions. History of hypertension which has been largely stable. Has not checked it at home as often but he is taking his medications as prescribed. He is currently on a regimen of antihypertensives including triamterene hydrochlorothiazide, losartan, and amlodipine. History of hyperlipidemia on rosuvastatin, taking medication as well consistently. No muscle pain reported. He is following up with urology and due to recent elevation in his PSA, plans for an MRI. No urinary concerns reported at this time. Plans to get his flu shot at work next week. Yet to get his colon cancer screening, would like a new referral. Has not been seen by dermatology. Would like to think about shingles and pneumonia vaccines. Attestation: Documentation on this patient encounter was supported using ambient scribe technology/ voice AI technology. The patient consented to recording for the purpose of documenting the encounter. Provider reviewed content of the generated note prior to signature. ROS Const Constitutional: No body ache, excessive sweating, fatigue, fever(s), frequent falls, headache(s), snoring, weakness, weight change, sleep problems or change in appetite Eyes Eyes: No blurry vision, change in vision, vision loss, dry eyes, eye pain or Light sensitivity ENT ENT: No abnormal hearing, ear or mastoid pain, tinnitus, nasal congestion, headache(s), neck pain or sore throat Resp Respiratory: No cough, excessive phlegm production, hemoptysis, shortness of breath, snoring or wheezing Cardio Cardiology: No chest pain at rest, chest pain with exertion, excessive sweating, shortness of breath, dyspnea on exertion, lightheadedness, orthopnea or palpitations Gastro GI: No abdominal pain, change (more content not included)... Normal [facility] Anion gap in Serum or Plasma Ordered By: Ceasar Cristobal on 03-04-2025 Anion gap [Moles/Vol] 12 mmol/L 02-11 [facility] BUN/creatinine ratioOrdered By: Ceasar Cristobal on 03-04-2025 Urea nitrogen/Creatinine [Mass ratio] 17.4 mg/mg 07-19 [facility] Basic Metabolic Profile (BMP )on 03-04-2025 BUN/CRE 17.4 RATIO Normal 07-19 [facility] Comment on above: Order Comment: BMP-O LEGHE PSAD-MONICA Performed By: #### L [id number], L500.2500 #### [facility] [address] [place], [address] Calcium [Mass/Vol] 8.7 mg/dL Normal 7.6-11.0 [facility] Comment on above: Order Comment: BMP-O LEGHE PSAD-MONICA Performed By: #### L [id number], L500.2500 #### [facility] [address] [place], [address] Chloride [Moles/Vol] 101 mmol/L Normal 98-108 [facility] Comment on above: Order Comment: BMP-O LEGHE PSAD-MONICA Performed By: #### L [id number], L500.2500 #### [facility] [address] [place], [address] CO2 [Moles/Vol] 24.9 mmol/L Normal 21.0-32.0 [facility] Comment on above: Order Comment: BMP-O LEGHE PSAD-MONICA Performed By: #### L [id number], L500.2500 #### [facility] [address] [place], [address] Creatinine [Mass/Vol] 1.02 mg/dL Normal 0.70-1.20 [facility] Comment on above: Order Comment: BMP-O LEGHE PSAD-MONICA Performed By: #### L [id number], L500.2500 #### [facility] [address] [place], [address] GAP 12 Normal 5-15 [facility] Comment on above: Order Comment: BMP-O LEGHE PSAD-MONICA Performed By: #### L [id number], L500.2500 #### [facility] [address] [place], [address] GFR/1.73 sq M.predicted among non-blacks MDRD (S/P/Bld) [Vol rate/Area] 83 mL/min/{1.73_m2} Normal >60 [facility] Comment on above: Order Comment: BMP-O LEGHE PSAD-MONICA Result Comment: mL/m in/1.73m2 CKD-EPI Creatinine Equation (2020) Performed By: #### L [id number], L500.2500 #### [facility] [address] [place], [address] Glucose [Mass/Vol] 97 mg/dL Normal 70-99 [facility] Comment on above: Order Comment: BMP-O LEGHE PSAD-MONICA Performed By: #### L [id number], L500.2500 #### [facility] [address] [place], [address] Potassium [Moles/Vol] 3.4 mmol/L Normal 3.3-5.1 [facility] Comment on above: Order Comment: BMP-O LEGHE PSAD-MONICA Performed By: #### L [id number], L500.2500 #### [facility] [address] [place], [address] Sodium [Moles/Vol] 138 mmol/L Normal 133-145 [facility] Comment on above: Order Comment: BMP-O LEGHE PSAD-MONICA Performed By: #### L [id number], L500.2500 #### [facility] [address] [place], [address] Urea nitrogen [Mass/Vol] 18 mg/dL Normal 4-19 [facility] Comment on above: Order Comment: BMP-O LEGHE PSAD-MONICA Performed By: #### L [id number], L500.2500 #### [facility] [address] [place], [address] Carbon dioxide, total [Moles /volume] in Central venous bloodOrdered By: Ceasar Cristobal on 03-04-2025 CO2 [Moles/Vol] 24.9 mmol/L 21.0-32.0 [facility] Chloride assayOrdered By: Warren Cristobal on 03-04-2025 Chloride [Moles/Vol] 101 mmol/L 98-108 [facility] Glomerular filtration rate ( GFR) estimation/1.73 sq m using serum, plasma, or whole bOrdered By: Ceasar Cristobal on 03-04-2025 GFR/1.73 sq M.predicted among non-blacks MDRD (S/P/Bld) [Vol rate/Area] 83 mL/min/{1.73_m2} >60 [facility] Comment on above: mL/min/1.73m2 CKD-EP I Creatinine Equation (2020) PSA,Total- [employer] PSA, DIAGNOSTIC 7.50 ng/mL High 0.00-4.00 [facility] Comment on above: Order Comment: BMP-O LEGHEPSAD-MONICA Result Comment: This test was performed using the [employer] tPSA method. Measured values of a patient??sample can vary depending on the testing procedure used. PSA values determined on patient samples by different testing procedures cannot be used interchangeably. If there is a change in PSA assays while monitoring therapy, sequential testing should be performed to confirm baseline values. Performed By: #### L [id number], L500.2500 ####[facility] [id number] [place], [address] Potassium measurement (mass/ volume)Ordered By: Ceasar Cristobal on 03-04-2025 Potassium (Unsp spec) [Mass/Vol] 3.4 mmol/L 3.3-5.1 [facility] Serum creatinine measurement (mass/volume)Ordered By: Ceasar Cristobal on 03-04-2025 Creatinine [Mass/Vol] 1.02 mg/dL 0.70-1.20 [facility] Serum glucose measurement (m ass/volume)Ordered By: [facility] Cristobal on 03-04-2025 Glucose [Mass/Vol] 97 mg/dL 70-99 [facility] Serum or plasma calcium parris urement (mass/volume)Ordered By: Ceasar Cristobal on 03-04-2025 Calcium [Mass/Vol] 8.7 mg/dL 7.6-11.0 [facility] Serum or plasma urea nitroge n measurement (mass/volume)Ordered By: Ceasar Cristobal on 03-04-2025 Urea nitrogen [Mass/Vol] 18 mg/dL 4-19 [facility] Sodium levelOrdered By: Fabiana roweapoloniamann Cristobal on 03-04-2025 Sodium [Moles/Vol] 138 mmol/L 133-145 [facility] Internal Medicine Office Vis leonel 01-07-2025 Internal Medicine Office Visit [facility] [address] [place] [address] [place] [address] OFFICE VISIT Date of Service: 01/07/25 MR#: [id number] Acct: [id number] Name: RICARDOLANI DRIVER CARMEN Rep #: [id number] : 1960 Provider: Dr. Ceasar hart MD Age/Sex: 64/M Location: [facility] Status: Signed Intake Vital Signs 09/17/24 15:54 12/08/24 13:44 01/07/25 16:33 Height 6 ft 1 in 6 ft 6 ft Weight: 203 lb BMI 27.5 BP 134/84 H Blood Pressure Location Lt brachial Position Sitting Respiration 18 Pulse 87 Pulse Source Monitor Temp 99.1 F Temp Source Temporal Pulse Oximetry (%) 98 Oxygen Delivery Method room air Intake Visit Reasons: 4 M FU Chief Complaint: Follow-up chronic conditions Oil Developer Required: No Is patient in pain?: No Allergies No Known Allergies Allergy (Verified 01/07/25 16:27) Medications ???Medication ???Instructions ???Recorded ???Confirmed ???Type loratadine 10 mg tablet 10 mg PO DAILY PRN 03/14/22 History amlodipine 5 mg tablet 5 mg PO DAILY #90 TABLETS 12/30/23 01/07/25 Rx ibuprofen 200 mg capsule 200 mg PO Q6H PRN 12/15/24 5 History losartan 50 mg tablet See Rx Instructions .Route 5 01/07/25 Rx .COMPLEX #180 tabs potassium chloride 10 mEq 10 meq PO QDAY #90 tabs 01/07/25 0 01/07/25 Rx tablet,extended release rosuvastatin 10 mg tablet 10 mg PO DAILY #90 TABLETS 5 01/07/25 Rx triamterene 37.5 1 tab PO QAM #90 TABLETS 01/07/25 01/07/25 Rx mg-hydrochlorothiazide 25 mg tablet Nurse's Note: needs klorcon and crestor refilled [facility] Medical History Right shoulder strain Hypokalemia Elevated PSA Tobacco abuse Impacted cerumen of left ear BPH (benign prostatic hyperplasia) Generalized anxiety disorder Grief reaction Hyperlipidemia Bilateral lower extremity edema Hyperglycemia Obstructive sleep apnea Health care maintenance Colon cancer screening Sleep apnea History of fracture of phalanx of finger History of fracture of arm History of mononucleosis Mitral valve prolapse Seasonal allergies Asthma High cholesterol Shoulder pain Hypertension Surgical History History of open reduction and internal fixation (ORIF) procedure History of nasal surgery Family History Grandfather Alcoholism in family Lymphoma Grandmother Alcoholism in family Mother Anxiety Family history of cervical cancer Diabetes Father Diabetes Social History Smoking Status: Former smoker Tobacco: How many years used: 15 alcohol intake: current alcohol intake frequency: a few times a week Alcohol type: beer substance use type: does not use what type of physical activity do you participate in: bicycling frequency: 3-4 times per week HPI HPI Chief Complaint: Follow-up chronic conditions Details: LANI SILVA, is a 64 M who presents to the office today for follow-up of his chronic medical conditions. No acute concerns at this time. Since his last visit, he states that he has been taking triamterene-hydrochloro thiazide more consistently. Average readings at home said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 and Plan (1) Right (more content not included)... Normal [facility] Internal Medicine Office Vis iton 09-17-2024 Internal Medicine Office Visit [facility] [address] [place], [place] [address] OFFICE VISIT Date of Service: 09/17/24 MR#: [id number] Acct: [id number] Name: LANI SILVA III Rep #: [id number] : 1960 Provider: Dr. Ceasar hart MD Age/Sex: 63/M Location: [facility] Status: Signed Intake Vital Signs 05/28/24 16:53 09/17/24 15:54 Height 6 ft 1 in 6 ft 1 in Weight: 208 lb BMI 27.4 BP 132/70 H Blood Pressure Location Lt brachial Position Sitting Respiration 16 Pulse 78 Pulse Source Monitor Temp 97.6 F L Temp Source Temporal Pulse Oximetry (%) 99 Oxygen Delivery Method room air Intake Visit Reasons: 4 M FU Chief Complaint: Follow-up chronic conditions Oil Developer Required: No Accompanied by: Self Is patient in pain?: No Allergies No Known Allergies Allergy (Verified 09/17/24 15:50) Medications ???Medication ???Instructions ???Recorded ???Confirmed ???Type loratadine 10 mg tablet 10 mg PO DAILY PRN 03/14/22 09/17/24 History amlodipine 5 mg tablet 5 mg PO DAILY #90 TABLETS 12/30/23 09/17/24 Rx rosuvastatin 10 mg tablet 10 mg PO DAILY #90 TABLETS 12/30/23 09/17/24 Rx losartan 50 mg tablet See Rx Instructions .Route 06/19/24 09/17/24 Rx .COMPLEX #180 tabs potassium chloride 10 mEq 10 meq PO QDAY #90 tabs 06/22/24 09/17/24 Rx tablet,extended release triamterene 37.5 1 tab PO QAM #90 TABLETS 09/17/24 09/17/24 Rx mg-hydrochlorothiazide 25 mg tablet [facility] Medical History Hypokalemia Elevated PSA Tobacco abuse Impacted cerumen of left ear BPH (benign prostatic hyperplasia) Generalized anxiety disorder Grief reaction Hyperlipidemia Bilateral lower extremity edema Hyperglycemia Obstructive sleep apnea Health care maintenance Colon cancer screening Sleep apnea History of fracture of phalanx of finger History of fracture of arm History of mononucleosis Mitral valve prolapse Seasonal allergies Asthma High cholesterol Shoulder pain Hypertension Surgical History History of open reduction and internal fixation (ORIF) procedure History of nasal surgery Family History Grandfather Alcoholism in family Lymphoma Grandmother Alcoholism in family Mother Anxiety Family history of cervical cancer Diabetes Father Diabetes Social History Smoking Status: Former smoker Tobacco: How many years used: 15 alcohol intake: current alcohol intake frequency: a few times a week Alcohol type: beer substance use type: does not use what type of physical activity do you participate in: bicycling frequency: 3-4 times per week HPI HPI Chief Complaint: Follow-up chronic conditions Details: LANI SILVA, is a 63 M who presents to the office today for follow-up of his chronic medical conditions. No acute concerns at this time. History of hypertension, blood pressure today at 132/70. Has checked it randomly at home and occasional readings in the 140s/150s. Currently on losartan, amlodipine and triamterene hydrochlorothiazide. However only taking triamterene hydrochlorothiazide a couple days a week. No chest pain, palpitation or shortness of breath. Other chronic medical conditions are stable. Follows up with urology. ROS Const Constitutional: No body ache, chills, excessive sweating, fatigue, fever(s), frequent falls, headache(s), snoring, weakness or change in appetite Eyes Eyes: No blurry vision, change in vision, bulging eyes, floaters, visual disturbances, eye pain or Light sensitivity ENT ENT: No abnormal hearing, ear or mastoid pain, tinnitus, balance problems, nosebleed/epistaxis, nasal congestion, headache(s), neck pain or sore throat Resp Respiratory: No cough, excessive phlegm production, pain on inspiration, shortness of breath, snoring or wheezing Cardio Cardiology: No chest pain at rest, chest pain with exertion, excessive sweating, dyspnea on exertion, lightheadedness, orthopnea or palpitations Gastro GI: No abdominal pain, change in bowel habits, constipation, cramping, diarrhea, nausea/dyspepsia or vomiting Genitourinary Male: No burning urination, painful urination, urinary incontinence, urinary frequency, suprapubic fullness or side pain Musc Musculoskeletal: No abnormal gait, joint pain, back pain, limited range of motion, muscle weakness, neck pain or numbness Skin Skin: No dry skin, redness, excessive hair growth, yellowing of the eye, lesions, itchy eyes, rash or wounds Neuro Neurology: No abnormal gait, abnormal hearing, behavioral changes, unsteady gait/balance, weakness, frequent falls, headache(s), memory loss, numbness or visual distu (more content not included)... Normal [facility] Basic Metabolic Profile (BMP )on 09-01-2024 BUN/CRE 14.4 RATIO Normal 10-20 [facility] Comment on above: Performed By: #### L 500.2500 ####[facility] [address] [place], [place], [id number] CA,Total 8.6 mg/dL Normal 8.5-10.1 [facility] Comment on above: Performed By: #### L 500.2500 ####[facility] [address] [place], [place], [id number] Chloride [Moles/Vol] 105 mmol/L Normal 98-107 [facility] Comment on above: Performed By: #### L 500.2500 ####[facility] [address] [place], [address] CO2 [Moles/Vol] 30.0 mmol/L Normal 21.0-32.0 [facility] Comment on above: Performed By: #### L 500.2500 ####[facility] [address] [place], [address] Creatinine [Mass/Vol] 0.90 mg/dL Normal 0.70-1.30 [facility] Comment on above: Result Comment: The validity of the calculated GFR GFRAA in patients over 70 years has not been determined. Clinical correlation is essential. Performed By: #### L 500.2500 ####[facility] [address] [place], [address] EST GFR - AA 110 mL/min Normal >60 [facility] Comment on above: Result Comment: Afri can [place] GFR Calc Performed By: #### L 500.2500 ####[facility] [address] [place], [address] GAP 4 Low 5-15 [facility] Comment on above: Performed By: #### L 500.2500 ####[facility] [address] [place], [address] GFR/1.73 sq M.predicted among non-blacks MDRD (S/P/Bld) [Vol rate/Area] 91 mL/min/{1.73_m2} Normal >60 [facility] Comment on above: Result Comment: Non- GFR Calc Performed By: #### L 500.2500 ####[facility] [address] [place], [address] Glucose [Mass/Vol] 83 mg/dL Normal 74-106 [facility] Comment on above: Performed By: #### L 500.2500 ####[facility] [address] [place], [address] Potassium [Moles/Vol] 3.6 mmol/L Normal 3.5-5.1 [facility] Comment on above: Performed By: #### L 500.2500 ####[facility] [address] [place], [address] Sodium [Moles/Vol] 139 mmol/L Normal 136-145 [facility] Comment on above: Performed By: #### L 500.2500 ####[facility] [address] [place], [place], [phone] Urea nitrogen [Mass/Vol] 13 mg/dL Normal 7-18 [facility] Comment on above: Performed By: #### L 500.2500 ####[facility] [address] [place], [place], [phone]) Blood urea nitrogen (BUN)/cr eatinine ratioOrdered By: Ceasar Cristobal on 09-01-2024 Urea nitrogen/Creatinine [Mass ratio] 14.4 mg/mg 10-20 [facility] Carbon dioxide measurementOr dered By: Ceasar Cristobal on 09-01-2024 CO2 [Moles/Vol] 30.0 mmol/L 21.0-32.0 [facility] Chloride measurementOrdered By: Ceasar Cristobal on 09-01-2024 Chloride [Moles/Vol] 105 mmol/L 98-107 [facility] Diagnostic total prostate sp ecific antigen (PSA) measurementOrdered By: Cecille Bang on 09-01-2024 Prostate Specific Antigen Total 5.27 ng/mL High 0.0-4.0 [facility] Comment on above: This test was perfor med using the TPSA assay method for the[employer] chemistry system. Values obtained with differentassay methods cannot be used interchangably.When changing PSA assays in the course of monitoring apatient, additional sequential testing should be carriedout to confirm baseline values. Estimated glomerular filtrat ion rate (GFR) AmericanOrdered By: Ceasar Cristobal on 09-01-2024 Estimated GFR (MDRD) Amer 110 mL/min >60 [facility] Comment on above: GFR Calc Glomerular filtration rate ( GFR) estimationOrdered By: Ceasar Cristobal on 09-01-2024 Estimated GFR (MDRD) Non-Af Amer 91 mL/min >60 [facility] Comment on above: Non- GFR Calc Glucose measurementOrdered B y: Ceasar Cristobal on 09-01-2024 Glucose [Mass/Vol] 83 mg/dL 74-106 [facility] PSA,Total- Diagnosticon 12-0 PSA, DIAGNOSTIC 5.27 ng/mL High 0.0-4.0 [facility] Comment on above: Result Comment: This test was performed using the TPSA assay method for the [employer] chemistry system. Values obtained with different assay methods cannot be used interchangably. When changing PSA assays in the course of monitoring a patient, additional sequential testing should be carried out to confirm baseline values. Performed By: #### L 501.9940 ####[facility] [address] [place], [address] Potassium measurementOrdered By: Ceasar Cristobal on 09-01-2024 Potassium [Moles/Vol] 3.6 mmol/L 3.5-5.1 [facility] Serum anion gap measurementO rdered By: Ceasar Cristobal on 09-01-2024 Anion gap [Moles/Vol] 4 mmol/L Low 5-15 [facility] Serum or plasma calcium parris urement (mass/volume)Ordered By: Ceasar Cristobal on 09-01-2024 Calcium [Mass/Vol] 8.6 mg/dL 8.5-10.1 [facility] Serum or plasma creatinine m easurement (mass/volume)Ordered By: Ceasar Cristobal on 09-01-2024 Creatinine [Mass/Vol] 0.90 mg/dL 0.70-1.30 [facility] Comment on above: The validity of the calculated GFR & GFRAA in patients over 70 years has not been determined. Clinical correlation is essential. Serum or plasma urea nitroge n measurement (mass/volume)Ordered By: Ceasar Cristobal on 09-01-2024 Urea nitrogen [Mass/Vol] 13 mg/dL 7-18 [facility] Sodium levelOrdered By: Fabiana welshe Carlosbrandomann on 09-01-2024 Sodium [Moles/Vol] 139 mmol/L 136-145 [facility] Basophil percentageOrdered B y: Ceasar Cristobal on 01-09-2024 Basophil percentage 7.23 ng/mL 0.0-4.0 [facility] Comment on above: This test was perfor med using the TPSA assay method for the[employer] chemistry system. Values obtained with differentassay methods cannot be used interchangably.When changing PSA assays in the course of monitoring apatient, additional sequential testing should be carriedout to confirm baseline values. Chloride [Moles/Vol] 103 mmol/L 98-107 [facility] Glucose [Mass/Vol] 107 mg/dL 74-106 [facility] Comment on above: Fasting Glucose resu lt from 100 to 125 mg/dL suggests IMPAIRED HOMEOSTASIS per A.D.A. criteria. Potassium [Moles/Vol] 3.6 mmol/L 3.5-5.1 [facility] Sodium [Moles/Vol] 137 mmol/L 136-145 [facility] Laboratory - Chemistry and C hemistry - challengeOrdered By: Ceasar Cristobal on 01-09-2024 CO2 [Moles/Vol] 29.0 mmol/L 21.0-32.0 [facility] Urea nitrogen/Creatinine [Mass ratio] 17.1 mg/mg 10-20 [facility] No Panel InformationOrdered By: Ceasar Cristobal on 01-09-2024 Estimated GFR (MDRD) Amer 106 mL/min >60 [facility] Comment on above: GFR Calc Estimated GFR (MDRD) Non-Af Amer 87 mL/min >60 [facility] Comment on above: Non- GFR Calc Serum or plasma calcium parris urement (mass/volume)Ordered By: Ceasar Cristobal on 01-09-2024 Calcium [Mass/Vol] 8.8 mg/dL 8.5-10.1 [facility] Serum or plasma creatinine m easurement (mass/volume)Ordered By: Ceasar Cristobal on 01-09-2024 Creatinine [Mass/Vol] 0.93 mg/dL 0.70-1.30 [facility] Comment on above: The validity of the calculated GFR & GFRAA in patients over 70 years has not been determined. Clinical correlation is essential. Serum or plasma urea nitroge n measurement (mass/volume)Ordered By: Ceasar Cristobal on 01-09-2024 Urea nitrogen [Mass/Vol] 16 mg/dL 7-18 [facility] Thin prep Papanicolaou smear with manual screeningOrdered By: Ceasar Cristobal on 01-09-2024 Thin prep Papanicolaou smear with manual screening 5 5-15 [facility] Basophil percentageOrdered B y: Ceasar Cristobal on 07-11-2023 Chloride [Moles/Vol] 108 mmol/L 98-107 [facility] Glucose [Mass/Vol] 101 mg/dL 74-106 [facility] Comment on above: Fasting Glucose resu lt from 100 to 125 mg/dL suggests IMPAIRED HOMEOSTASIS per A.D.A. criteria. Potassium [Moles/Vol] 3.6 mmol/L 3.5-5.1 [facility] Sodium [Moles/Vol] 140 mmol/L 136-145 [facility] Laboratory - Chemistry and C hemistry - challengeOrdered By: Ceasar Cristobal on 07-11-2023 CO2 [Moles/Vol] 28.0 mmol/L 21.0-32.0 [facility] Urea nitrogen/Creatinine [Mass ratio] 21.5 mg/mg 10-20 [facility] No Panel InformationOrdered By: Ceasar Cristobal on 07-11-2023 Estimated GFR (MDRD) Amer 106 mL/min >60 [facility] Comment on above: GFR Calc Estimated GFR (MDRD) Non-Af Amer 88 mL/min >60 [facility] Comment on above: Non- GFR Calc Prostate Specific Antigen Screen 5.77 ng/mL 0.00-4.00 [facility] Comment on above: This test was perfor med using the TPSA assay method for the[employer] chemistry system. Values obtained with differentassay methods cannot be used interchangably.When changing PSA assays in the course of monitoring apatient, additional sequential testing should be carriedout to confirm baseline values. Serum or plasma calcium parris urement (mass/volume)Ordered By: Ceasar Cristobal on 07-11-2023 Calcium [Mass/Vol] 9.1 mg/dL 8.5-10.1 [facility] Serum or plasma creatinine m easurement (mass/volume)Ordered By: Ceasar Cristobal on 07-11-2023 Creatinine [Mass/Vol] 0.93 mg/dL 0.70-1.30 [facility] Comment on above: The validity of the calculated GFR & GFRAA in patients over 70 years has not been determined. Clinical correlation is essential. Serum or plasma urea nitroge n measurement (mass/volume)Ordered By: Ceasar Cristobal on 07-11-2023 Urea nitrogen [Mass/Vol] 20 mg/dL 7-18 [facility] Thin prep Papanicolaou smear with manual screeningOrdered By: Ceasar Cristobal on 07-11-2023 Thin prep Papanicolaou smear with manual screening 4 5-15 [facility] Absolute lymphocyte countOrd ered By: Dr. Cristobal on 03-23-2023 Lymphocytes Auto (Unsp spec) [#/Vol] 1.06 10*3/uL 0.83-4.51 [facility] Basophil percentageOrdered B y: Dr. Cristobal on 03-23-2023 Basophils/100 WBC (Bld) 0.9 % 0-1 [facility] Bilirubin [Mass/Vol] 1.00 mg/dL 0.20-1.00 [facility] Comment on above: For patients on eltr ombopag therapy, use of Dimension [place] TBIL is not recommended. Chloride [Moles/Vol] 107 mmol/L 98-107 [facility] Cholesterol [Mass/Vol] 123 mg/dL <200 [facility] Comment on above: <200 mg/dL Desirable 200-240 mg/dL Borderline >240 mg/dL High Risk Eosinophils/100 WBC (Bld) 2.9 % 0-5 [facility] Glucose [Mass/Vol] 130 mg/dL 74-106 [facility] Comment on above: Fasting Glucose resu lt greater than or equal to 126 mg/dL suggests DIABETES MELLITUS per A.D.A. criteria. Neutrophils (Bld) [#/Vol] 5.9 10*3/uL 2.0-7.7 [facility] Neutrophils/100 WBC (Bld) 73.7 % 47-70 [facility] Potassium [Moles/Vol] 3.7 mmol/L 3.5-5.1 [facility] Protein [Mass/Vol] 7.4 g/dL 6.4-8.2 [facility] Sodium [Moles/Vol] 139 mmol/L 136-145 [facility] Triglyceride [Mass/Vol] 90 mg/dL <199 [facility] Comment on above: The drugs N-Acetylcy steine and Metamizole may falsely depress this assay.Serum Triglycerides Reference Interval Normal <150 mg/dL Borderline high 150 - 199 mg/dL High 200 - 499 mg/dL Very High > or = 500 mg/dL WBC (Bld) [#/Vol] 7.9 10*3/uL 4.4-11.0 [facility] Blood erythrocytes count (nu mber/volume)Ordered By: Dr. Cristobal on 03-23-2023 RBC (Bld) [#/Vol] 5.10 10*6/uL 4.6-6.2 [facility] Blood hemoglobin measurement (mass/volume)Ordered By: Dr. Cristobal on 03-23-2023 Hemoglobin (Bld) [Mass/Vol] 15.2 g/dL 13.0-16.5 [facility] Blood lymphocytes/100 leukoc ytesOrdered By: Dr. Cristobal on 03-23-2023 Lymphocytes/100 WBC (Bld) 13.4 % 19-41 [facility] Blood monocytes/100 leukocyt esOrdered By: Dr. Cristobal on 03-23-2023 Monocytes/100 WBC (Bld) 8.6 % 0-10 [facility] Blood platelet mean volumeOr dered By: Dr. Cristobal on 03-23-2023 Platelet mean volume (Bld) [Entitic vol] 9.1 fL 6.2-12.0 [facility] Determination of erythrocyte mean corpuscular volume (MCV)Ordered By: Dr. Cristobal on 03-23-2023 MCV (RBC) [Entitic vol] 87.3 fL 80-94 [facility] Hematocrit Auto (Bld) [Volum e fraction]Ordered By: Dr. Cristobal on 03-23-2023 Hematocrit (Bld) [Volume fraction] 44.5 % 40-54 [facility] Laboratory - Chemistry and C hemistry - challengeOrdered By: Dr. Cristobal on 03-23-2023 ALP [Catalytic activity/Vol] 87 U/L 45-117 [facility] ALT [Catalytic activity/Vol] 21 U/L 16-61 [facility] CO2 [Moles/Vol] 27.0 mmol/L 21.0-32.0 [facility] Globulin (S) [Mass/Vol] 3.9 g/dL 2.2-4.2 [facility] Urea nitrogen/Creatinine [Mass ratio] 16.3 mg/mg 10-20 [facility] Laboratory - Hematology and Cell countsOrdered By: Dr. Cristobal on 03-23-2023 Erythrocyte distribution width (RBC) [Entitic vol] 40.5 fL 35.1-43.9 [facility] Erythrocyte distribution width (RBC) [Ratio] 12.7 % 11.6-14.6 [facility] Immature granulocytes/100 WBC (Bld) 0.500 % 0.0-0.9 [facility] Comment on above: IG% - Immature Granu locytes (promyelocytes, myelocytes and metamyelocytes) > 1% indicates that a LEFT SHIFT is Present. MCH (RBC) [Entitic mass] 29.8 pg 27.0-32.0 [facility] Nucleated RBC/100 WBC (Bld) [Ratio] 0 % 0-5 [facility] MCHC Auto (RBC) [Mass/Vol]Or dered By: Dr. Cristobal on 03-23-2023 MCHC (RBC) [Mass/Vol] 34.2 g/dL 32-36 [facility] No Panel InformationOrdered By: Dr. Cristobal on 03-23-2023 Estimated GFR (MDRD) Amer 108 mL/min >60 [facility] Comment on above: GFR Calc Estimated GFR (MDRD) Non-Af Amer 89 mL/min >60 [facility] Comment on above: Non- GFR Calc Platelets bldOrdered By: Dr. Cristobal on 03-23-2023 Platelets (Bld) [#/Vol] 226 10*3/uL 150-450 [facility] Serum or plasma albumin parris urement (mass/volume)Ordered By: Dr. Cristobal on 03-23-2023 Albumin [Mass/Vol] 3.5 g/dL 3.2-5.0 [facility] Serum or plasma albumin/glob ulin mass ratioOrdered By: Dr. Cristobal on 03-23-2023 Albumin/Globulin [Mass ratio] 0.9 {ratio} 0.9-2.4 [facility] Serum or plasma calcium parris urement (mass/volume)Ordered By: Dr. Cristobal on 03-23-2023 Calcium [Mass/Vol] 9.0 mg/dL 8.5-10.1 [facility] Serum or plasma cholesterol in HDL measurement (mass/volume)Ordered By: Dr. Cristobal on 03-23-2023 Cholesterol in HDL [Mass/Vol] 33 mg/dL >40 [facility] Comment on above: The drugs N-Acetylcy steine and Metamizole may falsely depress this assay. Reference Range HDL <40 mg/dL Low HDL Cholesterol HDL >or= 60 mg/dL High HDL Cholesterol Serum or plasma cholesterol in VLDL measurement (mass/volume)Ordered By: Dr. Cristobal on 03-23-2023 Cholesterol in VLDL [Mass/Vol] 18 mg/dL 5-40 [facility] Serum or plasma creatinine m easurement (mass/volume)Ordered By: Dr. Cristobal on 03-23-2023 Creatinine [Mass/Vol] 0.92 mg/dL 0.70-1.30 [facility] Comment on above: The validity of the calculated GFR & GFRAA in patients over 70 years has not been determined. Clinical correlation is essential. Serum or plasma low density lipoprotein (LDL) cholesterol measurement (mass/volume)Ordered By: Dr. Cristobal on 03-23-2023 Cholesterol in LDL [Mass/Vol] 72 mg/dL 0-130 [facility] Serum or plasma urea nitroge n measurement (mass/volume)Ordered By: Dr. Cristobal on 03-23-2023 Urea nitrogen [Mass/Vol] 15 mg/dL 7-18 [facility] Thin prep Papanicolaou smear with manual screeningOrdered By: Dr. Cristobal on 03-23-2023 Thin prep Papanicolaou smear with manual screening 9 U/L 15-37 [facility] Thin prep Papanicolaou smear with manual screening 5 5-15 [facility] Basophil percentageon 2021 Chloride [Moles/Vol] 103 mmol/L 98-107 [facility] Work Phone: Glucose [Mass/Vol] 136 mg/dL 74-106 [facility] Work Phone: Comment on above: Fasting Glucose resu lt greater than or equal to 126 mg/dL suggests DIABETES MELLITUS per A.D.A. criteria. Potassium [Moles/Vol] 3.7 mmol/L 3.5-5.1 [facility] Work Phone: Sodium [Moles/Vol] 141 mmol/L 136-145 [facility] Work Phone: Laboratory - Chemistry and C hemistry - challengeon 06-14-2022 CO2 [Moles/Vol] 29.0 mmol/L 21.0-32.0 [facility] Work Phone: Urea nitrogen/Creatinine [Mass ratio] 15.7 mg/mg 10-20 [facility] Work Phone: No Panel Informationon 06-14 Estimated GFR (MDRD) Amer 96 mL/min >60 [facility] Work Phone: Comment on above: GFR Calc Estimated GFR (MDRD) Non-Af Amer 79 mL/min >60 [facility] Work Phone: Comment on above: Non- GFR Calc Serum or plasma calcium parris urement (mass/volume)on 06-14-2022 Calcium [Mass/Vol] 9.1 mg/dL 8.5-10.1 [facility] Work Phone: Serum or plasma creatinine m easurement (mass/volume)on 06-14-2022 Creatinine [Mass/Vol] 1.02 mg/dL 0.70-1.30 [facility] Work Phone: Comment on above: The validity of the calculated GFR & GFRAA in patients over 70 years has not been determined. Clinical correlation is essential. Serum or plasma urea nitroge n measurement (mass/volume)on 06-14-2022 Urea nitrogen [Mass/Vol] 16 mg/dL 7-18 [facility] Work Phone: Thin prep Papanicolaou smear with manual screeningon 06-14-2022 Thin prep Papanicolaou smear with manual screening 9 5-15 [facility] Work Phone: Basophil percentageon 2021 Chloride [Moles/Vol] 102 mmol/L 98-107 [facility] Work Phone: Glucose [Mass/Vol] 117 mg/dL 74-106 [facility] Work Phone: Comment on above: Fasting Glucose resu lt from 100 to 125 mg/dL suggests IMPAIRED HOMEOSTASIS per A.D.A. criteria. Potassium [Moles/Vol] 3.3 mmol/L 3.5-5.1 [facility] Work Phone: Sodium [Moles/Vol] 138 mmol/L 136-145 [facility] Work Phone: Laboratory - Chemistry and C hemistry - challengeon 05-04-2022 CO2 [Moles/Vol] 29.0 mmol/L 21.0-32.0 [facility] Work Phone: Urea nitrogen/Creatinine [Mass ratio] 15.2 mg/mg 10-20 [facility] Work Phone: No Panel Informationon 05-04 Estimated GFR (MDRD) Amer 93 mL/min >60 [facility] Work Phone: Comment on above: GFR Calc Estimated GFR (MDRD) Non-Af Amer 77 mL/min >60 [facility] Work Phone: Comment on above: Non- GFR Calc Serum or plasma calcium parris urement (mass/volume)on 05-04-2022 Calcium [Mass/Vol] 8.4 mg/dL 8.5-10.1 [facility] Work Phone: Serum or plasma creatinine m easurement (mass/volume)on 05-04-2022 Creatinine [Mass/Vol] 1.05 mg/dL 0.70-1.30 [facility] Work Phone: Comment on above: The validity of the calculated GFR & GFRAA in patients over 70 years has not been determined. Clinical correlation is essential. Serum or plasma urea nitroge n measurement (mass/volume)on 05-04-2022 Urea nitrogen [Mass/Vol] 16 mg/dL 7-18 [facility] Work Phone: Thin prep Papanicolaou smear with manual screeningon 05-04-2022 Thin prep Papanicolaou smear with manual screening 7 5-15 [facility] Work Phone: Absolute lymphocyte counton 02-09-2022 Lymphocytes Auto (Unsp spec) [#/Vol] 1.01 10*3/uL 0.83-4.51 [facility] Work Phone: Basophil percentageon 2021 Basophils/100 WBC (Bld) 1.1 % 0-1 [facility] Work Phone: Bilirubin [Mass/Vol] 1.30 mg/dL 0.20-1.00 [facility] Work Phone: Comment on above: For patients on eltr ombopag therapy, use of Dimension [place] TBIL is not recommended. Chloride [Moles/Vol] 105 mmol/L 98-107 [facility] Work Phone: Cholesterol [Mass/Vol] 146 mg/dL <200 [facility] Work Phone: Comment on above: <200 mg/dL Desirable 200-240 mg/dL Borderline >240 mg/dL High Risk Eosinophils/100 WBC (Bld) 3.2 % 0-5 [facility] Work Phone: Glucose [Mass/Vol] 157 mg/dL 74-106 [facility] Work Phone: Comment on above: Fasting Glucose resu lt greater than or equal to 126 mg/dL suggests DIABETES MELLITUS per A.D.A. criteria. Neutrophils (Bld) [#/Vol] 2.8 10*3/uL 2.0-7.7 [facility] Work Phone: Neutrophils/100 WBC (Bld) 64.0 % 47-70 [facility] Work Phone: Potassium [Moles/Vol] 3.4 mmol/L 3.5-5.1 [facility] Work Phone: Protein [Mass/Vol] 7.4 g/dL 6.4-8.2 [facility] Work Phone: Sodium [Moles/Vol] 139 mmol/L 136-145 [facility] Work Phone: Triglyceride [Mass/Vol] 143 mg/dL <199 [facility] Work Phone: Comment on above: The drugs N-Acetylcy steine and Metamizole may falsely depress this assay.Serum Triglycerides Reference Interval Normal <150 mg/dL Borderline high 150 - 199 mg/dL High 200 - 499 mg/dL Very High > or = 500 mg/dL WBC (Bld) [#/Vol] 4.4 10*3/uL 4.4-11.0 [facility] Work Phone: Blood erythrocytes count (nu mber/volume)on 02-09-2022 RBC (Bld) [#/Vol] 4.96 10*6/uL 4.6-6.2 [facility] Work Phone: Blood hemoglobin measurement (mass/volume)on 02-09-2022 Hemoglobin (Bld) [Mass/Vol] 15.3 g/dL 13.0-16.5 [facility] Work Phone: Blood lymphocytes/100 leukoc yteson 02-09-2022 Lymphocytes/100 WBC (Bld) 23.2 % 19-41 [facility] Work Phone: Blood monocytes/100 leukocyt eson 02-09-2022 Monocytes/100 WBC (Bld) 8.3 % 0-10 [facility] Work Phone: Blood platelet mean volumeon 02-09-2022 Platelet mean volume (Bld) [Entitic vol] 9.5 fL 6.2-12.0 [facility] Work Phone: Determination of erythrocyte mean corpuscular volume (MCV)on 02-09-2022 MCV (RBC) [Entitic vol] 89.1 fL 80-94 [facility] Work Phone: Hematocrit Auto (Bld) [Volum e fraction]on 02-09-2022 Hematocrit (Bld) [Volume fraction] 44.2 % 40-54 [facility] Work Phone: Laboratory - Chemistry and C hemistry - challengeon 02-09-2022 ALP [Catalytic activity/Vol] 73 U/L 45-117 [facility] Work Phone: ALT [Catalytic activity/Vol] 39 U/L 16-61 [facility] Work Phone: CO2 [Moles/Vol] 25.0 mmol/L 21.0-32.0 [facility] Work Phone: Globulin (S) [Mass/Vol] 3.5 g/dL 2.2-4.2 [facility] Work Phone: Urea nitrogen/Creatinine [Mass ratio] 13.2 mg/mg 10-20 [facility] Work Phone: Laboratory - Hematology and Cell countson 02-09-2022 Erythrocyte distribution width (RBC) [Entitic vol] 41.2 fL 35.1-43.9 [facility] Work Phone: Erythrocyte distribution width (RBC) [Ratio] 12.7 % 11.6-14.6 [facility] Work Phone: Immature granulocytes/100 WBC (Bld) 0.200 % 0.0-0.9 [facility] Work Phone: Comment on above: IG% - Immature Granu locytes (promyelocytes, myelocytes and metamyelocytes) > 1% indicates that a LEFT SHIFT is Present. MCH (RBC) [Entitic mass] 30.8 pg 27.0-32.0 [facility] Work Phone: Nucleated RBC/100 WBC (Bld) [Ratio] 0 % 0-5 [facility] Work Phone: MCHC Auto (RBC) [Mass/Vol]on 02-09-2022 MCHC (RBC) [Mass/Vol] 34.6 g/dL 32-36 [facility] Work Phone: No Panel Informationon 02-09 Estimated GFR (MDRD) Amer 100 mL/min >60 [facility] Work Phone: Comment on above: GFR Calc Estimated GFR (MDRD) Non-Af Amer 82 mL/min >60 [facility] Work Phone: Comment on above: Non- GFR Calc Prostate Specific Antigen Screen 3.57 ng/mL 0.00-4.00 [facility] Work Phone: Comment on above: This test was perfor med using the TPSA assay method for the[facility]. Values obtained with differentassay methods cannot be used interchangably.When changing PSA assays in the course of monitoring apatient, additional sequential testing should be carriedout to confirm baseline values. Platelets bldon 02-09-2022 Platelets (Bld) [#/Vol] 183 10*3/uL 150-450 [facility] Work Phone: Serum or plasma albumin parris urement (mass/volume)on 02-09-2022 Albumin [Mass/Vol] 3.9 g/dL 3.2-5.0 [facility] Work Phone: Serum or plasma albumin/glob ulin mass ratioon 02-09-2022 Albumin/Globulin [Mass ratio] 1.1 {ratio} 0.9-2.4 [facility] Work Phone: Serum or plasma calcium parris urement (mass/volume)on 02-09-2022 Calcium [Mass/Vol] 8.5 mg/dL 8.5-10.1 [facility] Work Phone: Serum or plasma cholesterol in HDL measurement (mass/volume)on 02-09-2022 Cholesterol in HDL [Mass/Vol] 36 mg/dL >40 [facility] Work Phone: Comment on above: The drugs N-Acetylcy steine and Metamizole may falsely depress this assay. Reference Range HDL <40 mg/dL Low HDL Cholesterol HDL >or= 60 mg/dL High HDL Cholesterol Serum or plasma cholesterol in VLDL measurement (mass/volume)on 02-09-2022 Cholesterol in VLDL [Mass/Vol] 29 mg/dL 5-40 [facility] Work Phone: Serum or plasma creatinine m easurement (mass/volume)on 02-09-2022 Creatinine [Mass/Vol] 0.99 mg/dL 0.70-1.30 [facility] Work Phone: Comment on above: The validity of the calculated GFR & GFRAA in patients over 70 years has not been determined. Clinical correlation is essential. Serum or plasma low density lipoprotein (LDL) cholesterol measurement (mass/volume)on 02-09-2022 Cholesterol in LDL [Mass/Vol] 81 mg/dL 0-130 [facility] Work Phone: Serum or plasma urea nitroge n measurement (mass/volume)on 02-09-2022 Urea nitrogen [Mass/Vol] 13 mg/dL 7-18 [facility] Work Phone: Thin prep Papanicolaou smear with manual screeningon 02-09-2022 Thin prep Papanicolaou smear with manual screening 19 U/L 15-37 [facility] Work Phone: Thin prep Papanicolaou smear with manual screening 9 5-15 [facility] Work Phone: Whole blood hemoglobin A1c/t otal hemoglobin ratio (mass fraction)on 02-09-2022 HbA1c (Bld) [Mass fraction] 5.1 % 3.8-5.6 [facility] Work Phone: Comment on above: Normal < 5.7 % Predi abetic 5.7 - 6.4 % Diabetic >or= 6.5 % Please note range changes. XR CHEST 2 VIEWSon 9 XR CHEST 2 VIEWS ORIGINAL XR CHEST 2 VIEWS, 04/25/2019 10:08 AM INDICATION: SOB COMPARISON: No FINDINGS: The lungs and pleural spaces are clear. The cardiac silhouette is within normal size limits. The pulmonary vasculature is unremarkable in appearance. IMPRESSION: Clear lungs. Interpreted By: Lani Dean MD Preliminary Report By: Lani Dean MD Electronically Signed By: Lani Dean MD Dictated Date: 04/25/2019 10:09:53 AM Prelim Date: 04/25/2019 10:09:53 AM Sign Date: 04/25/2019 10:10:58 AM Normal [facility] ([place]) XR SHOULDER MINIMUM 2 VIEWS RIGHTon 04-25-2019 XR SHOULDER MINIMUM 2 VIEWS RIGHT ORIGINAL XR SHOULDER MINIMUM 2 VIEWS RIGHT, 04/25/2019 10:07 AM INDICATION: pain COMPARISON: No FINDINGS: There are no acute fractures or dislocations. Alignment is within normal limits. Joint spaces are maintained. The soft tissues are unremarkable. IMPRESSION: Unremarkable examination. Interpreted By: Lani Dean MD Preliminary Report By: Lani Dean MD Electronically Signed By: Lani Dean MD Dictated Date: 04/25/2019 10:09:02 AM Prelim Date: 04/25/2019 10:09:02 AM Sign Date: 04/25/2019 10:09:32 AM Normal [facility] ([place]) Vital Signs Date Time Vital Sign Value Performing Clinician Faci lity 07-02-2025 14:42-0400 Body height 182.[address] Ceasar Cristobal MD Work Phone: [facility] 07-02-2025 14:42-0400 Body mass index (BMI) [Ratio] 27.9 kg/m2 Dr. Ceasar Cristobal MD Work Phone: [facility] 07-02-2025 14:42-0400 Body temperature 99.3 [degF] Dr. Ceasar Cristobal MD Work Phone: [facility] 07-02-2025 14:42-0400 Body weight 93.[address] Ceasar Cristobal MD Work Phone: [facility] 07-02-2025 14:42-0400 Diastolic blood pressure 82 mm[Hg] Dr. Ceasar Cristobal MD Work Phone: [facility] 07-02-2025 14:42-0400 Heart rate 82 /min Dr. Ceasar Cristobal MD Work Phone: [facility] 07-02-2025 14:42-0400 Respiratory rate 16 /min Dr. Ceasar Cristobal MD Work Phone: [facility] 07-02-2025 14:42-0400 SaO2% (BldA) [Mass fraction] 97 % Dr. Ceasar Cristobal MD Work Phone: [facility] 07-02-2025 14:42-0400 Systolic blood pressure 132 mm[Hg] Dr. Ceasar Cristobal MD Work Phone: [facility] 01-07-2025 16:33-0400 Body height 182.[address] Ceasar Cristobal MD Work Phone: [facility] 01-07-2025 16:33-0400 Body mass index (BMI) [Ratio] 27.5 kg/m2 Dr. Ceasar Cristobal MD Work Phone: [facility] 01-07-2025 16:33-0400 Body temperature 99.1 [degF] Dr. Ceasar Cristobal MD Work Phone: [facility] 01-07-2025 16:33-0400 Body weight 92.[address] Ceasar Cristobal MD Work Phone: [facility] 01-07-2025 16:33-0400 Diastolic blood pressure 84 mm[Hg] Dr. Ceasra Cristobal MD Work Phone: [facility] 01-07-2025 16:33-0400 Heart rate 87 /min Dr. Ceasar Cristobal MD Work Phone: [facility] 01-07-2025 16:33-0400 Respiratory rate 18 /min Dr. Ceasar Cristobal MD Work Phone: [facility] 01-07-2025 16:33-0400 SaO2% (BldA) [Mass fraction] 98 % Dr. Ceasar Cristobal MD Work Phone: [facility] 01-07-2025 16:33-0400 Systolic blood pressure 134 mm[Hg] Dr. Ceasar Cristobal MD Work Phone: [facility] 01-06-2025 16:26-0400 Body temperature 97.7 [degF] Dr. Ceasar Cristobal MD Work Phone: [facility] 01-06-2025 16:26-0400 Diastolic blood pressure 72 mm[Hg] Dr. Ceasar Cristobal MD Work Phone: [facility] 01-06-2025 16:26-0400 Heart rate 77 /min Dr. Ceasar Cristobal MD Work Phone: [facility] 01-06-2025 16:26-0400 Respiratory rate 15 /min Dr. Ceasar Cristobal MD Work Phone: [facility] 01-06-2025 16:26-0400 SaO2% (BldA) [Mass fraction] 97 % Dr. Ceasar Cristobal MD Work Phone: [facility] 01-06-2025 16:26-0400 Systolic blood pressure 150 mm[Hg] Dr. Ceasar Cristobal MD Work Phone: [facility] 12-22-2024 16:25-0400 Body temperature 97.8 [degF] Dr. Ceasar Cristobal MD Work Phone: [facility] 12-22-2024 16:25-0400 Diastolic blood pressure 78 mm[Hg] Dr. Ceasar Cristobal MD Work Phone: [facility] 12-22-2024 16:25-0400 Heart rate 84 /min Dr. Ceasar Cristobal MD Work Phone: [facility] 12-22-2024 16:25-0400 Respiratory rate 15 /min Dr. Ceasar Cristobal MD Work Phone: [facility] 12-22-2024 16:25-0400 SaO2% (BldA) [Mass fraction] 98 % Dr. Ceasar Cristobal MD Work Phone: [facility] 12-22-2024 16:25-0400 Systolic blood pressure 132 mm[Hg] Dr. Ceasar Cristobal MD Work Phone: [facility] 12-08-2024 13:44-0400 Body height 182.[address] Ceasar Cristobal MD Work Phone: [facility] 12-08-2024 13:44-0400 Body temperature 98.3 [degF] Dr. Ceasar Cristobal MD Work Phone: [facility] 12-08-2024 13:44-0400 Diastolic blood pressure 76 mm[Hg] Dr. Ceasar Cristobal MD Work Phone: [facility] 12-08-2024 13:44-0400 Heart rate 91 /min Dr. Ceasar Cristobal MD Work Phone: [facility] 12-08-2024 13:44-0400 Respiratory rate 12 /min Dr. Ceasar Cristobal MD Work Phone: [facility] 12-08-2024 13:44-0400 SaO2% (BldA) [Mass fraction] 98 % Dr. Ceasar Cristobal MD Work Phone: [facility] 12-08-2024 13:44-0400 Systolic blood pressure 126 mm[Hg] Dr. Ceasar Cristobal MD Work Phone: [facility] 12-08-2024 12:53-0400 Body mass index (BMI) [Ratio] 27.7 kg/m2 Dr. Ceasar Cristobal MD Work Phone: [facility] 12-08-2024 12:53-0400 Body temperature 96.9 [degF] Dr. Ceasar Cristobal MD Work Phone: [facility] 12-08-2024 12:53-0400 Body weight 92.[address] Ceasar Cristobal MD Work Phone: [facility] 12-08-2024 12:53-0400 Diastolic blood pressure 82 mm[Hg] Dr. Ceasar Cristobal MD Work Phone: [facility] 12-08-2024 12:53-0400 Heart rate 95 /min Dr. Ceasar Cristobal MD Work Phone: [facility] 12-08-2024 12:53-0400 Respiratory rate 16 /min Dr. Ceasar Cristobal MD Work Phone: [facility] 12-08-2024 12:53-0400 SaO2% (BldA) [Mass fraction] 99 % Dr. Ceasar Cristobal MD Work Phone: [facility] 12-08-2024 12:53-0400 Systolic blood pressure 152 mm[Hg] Dr. Ceasar Cristobal MD Work Phone: [facility] 09-17-2024 15:54-0500 Body mass index (BMI) [Ratio] 27.4 kg/m2 Dr. Ceasar Cristobal MD Work Phone: [facility] 09-17-2024 15:54-0500 Body temperature 97.6 [degF] Dr. Ceasar Cristobal MD Work Phone: [facility] 09-17-2024 15:54-0500 Body weight 94.[address] Ceasar Cristobal MD Work Phone: [facility] 09-17-2024 15:54-0500 Diastolic blood pressure 70 mm[Hg] Dr. Ceasar Cristobal MD Work Phone: [facility] 09-17-2024 15:54-0500 Heart rate 78 /min Dr. Ceasar Cristobal MD Work Phone: [facility] 09-17-2024 15:54-0500 Respiratory rate 16 /min Dr. Ceasar Cristobal MD Work Phone: [facility] 09-17-2024 15:54-0500 SaO2% (BldA) [Mass fraction] 99 % Dr. Ceasar Cristobal MD Work Phone: [facility] 09-17-2024 15:54-0500 Systolic blood pressure 132 mm[Hg] Dr. Ceasar Cristobal MD Work Phone: [facility] 01-08-2024 15:57-0400 Body height 185.[address] Ceasar Cristobal Work Phone: [facility] 01-08-2024 15:57-0400 Body mass index (BMI) [Ratio] 28.6 kg/m2 Dr. Ceasar Cristobal Work Phone: [facility] 01-08-2024 15:57-0400 Body temperature 98.1 [degF] Dr. Ceasar Cristobal Work Phone: [facility] 01-08-2024 15:57-0400 Body weight 98.[address] Ceasar Cristobal Work Phone: [facility] 01-08-2024 15:57-0400 Diastolic blood pressure 84 mm[Hg] Dr. Ceasar Cristobal Work Phone: [facility] 04-10-2024 15:57-0400 Heart rate 82 /min Dr. Ceasar Cristobal Work Phone: [facility] 01-08-2024 15:57-0400 Respiratory rate 14 /min Dr. Ceasar Cristobal Work Phone: [facility] 01-08-2024 15:57-0400 SaO2% (BldA) [Mass fraction] 98 % Dr. Ceasar Cristobal Work Phone: [facility] 01-08-2024 15:57-0400 Systolic blood pressure 132 mm[Hg] Dr. Ceasar Cristobal Work Phone: [facility] 07-10-2023 16:25-0400 Body height 185.[address] Ceasar Cristobal Work Phone: [facility] 07-10-2023 16:25-0400 Body mass index (BMI) [Ratio] 28.2 kg/m2 Dr. Ceasar Cristobal Work Phone: [facility] 07-10-2023 16:25-0400 Body temperature 99.2 [degF] Dr. Ceasar Cristobal Work Phone: [facility] 07-10-2023 16:25-0400 Body weight 97.[address] Ceasar Cristobal Work Phone: [facility] 07-10-2023 16:25-0400 Diastolic blood pressure 88 mm[Hg] Dr. Ceasar Cristobal Work Phone: [facility] 07-10-2023 16:25-0400 Heart rate 64 /min Dr. Ceasar Cristobal Work Phone: [facility] 07-10-2023 16:25-0400 Respiratory rate 16 /min Dr. Ceasar Cristobal Work Phone: [facility] 07-10-2023 16:25-0400 SaO2% (BldA) [Mass fraction] 97 % Dr. Ceasar Cristobal Work Phone: [facility] 07-10-2023 16:25-0400 Systolic blood pressure 130 mm[Hg] Dr. Ceasar Cristobal Work Phone: [facility] 04-03-2023 16:33-0400 Body mass index (BMI) [Ratio] 28.6 kg/m2 Dr. Ceasar Cristobal Work Phone: [facility] 04-03-2023 16:33-0400 Body temperature 97.3 [degF] Dr. Ceasar Cristobal Work Phone: [facility] 04-03-2023 16:33-0400 Body weight 98.[address] Ceasar Cristobal Work Phone: [facility] 04-03-2023 16:33-0400 Diastolic blood pressure 70 mm[Hg] Dr. Ceasar Cristobal Work Phone: [facility] 04-03-2023 16:33-0400 Heart rate 9 /min Dr. Ceasar Cristobal Work Phone: [facility] 04-03-2023 16:33-0400 Respiratory rate 14 /min Dr. Ceasar Cristobal Work Phone: [facility] 04-03-2023 16:33-0400 SaO2% (BldA) [Mass fraction] 97 % Dr. Ceasar Cristobal Work Phone: [facility] 04-03-2023 16:33-0400 Systolic blood pressure 134 mm[Hg] Dr. Ceasar Cristobal Work Phone: [facility] 12-17-2022 10:18-0400 Body height 185.[address] Ceasar Cristobal Work Phone: [facility] 12-17-2022 10:18-0400 Body mass index (BMI) [Ratio] 30 kg/m2 Dr. Ceasar Cristobal Work Phone: [facility] 12-17-2022 10:18-0400 Body temperature 97.9 [degF] Dr. Ceasar Cristobal Work Phone: [facility] 12-17-2022 10:18-0400 Body weight 103.[address] Ceasar Cristobal Work Phone: [facility] 12-17-2022 10:18-0400 Diastolic blood pressure 82 mm[Hg] Dr. Ceasar Cristobal Work Phone: [facility] 12-17-2022 10:18-0400 Heart rate 81 /min Dr. Ceasar Cristobal Work Phone: [facility] 12-17-2022 10:18-0400 Respiratory rate 14 /min Dr. Ceasar Cristobal Work Phone: [facility] 12-17-2022 10:18-0400 SaO2% (BldA) [Mass fraction] 99 % Dr. Ceasar Cristobal Work Phone: [facility] 12-17-2022 10:18-0400 Systolic blood pressure 140 mm[Hg] Dr. Ceasar Cristobal Work Phone: [facility] 06-19-2022 10:32-0400 Body height 185.[address] Ceasar Cristobal Work Phone: [facility] Work Phone: 06-19-2022 10:32-0400 Body mass index (BMI) [Ratio] 30.9 kg/m2 Dr. Ceasar Cristobal Work Phone: [facility] Work Phone: 06-19-2022 10:32-0400 Body temperature 97.5 [degF] Dr. Ceasar Cristobal Work Phone: [facility] Work Phone: 06-19-2022 10:32-0400 Body weight 106.[address] Ceasar Cristobal Work Phone: [facility] Work Phone: 06-19-2022 10:32-0400 Diastolic blood pressure 74 mm[Hg] Dr. Ceasar Cristobal Work Phone: [facility] Work Phone: 06-19-2022 10:32-0400 Heart rate 77 /min Dr. Ceasar Cristobal Work Phone: [facility] Work Phone: 06-19-2022 10:32-0400 Respiratory rate 14 /min Dr. Ceasar Cristobal Work Phone: [facility] Work Phone: 06-19-2022 10:32-0400 SaO2% (BldA) [Mass fraction] 97 % Dr. Ceasar Cristobal Work Phone: [facility] Work Phone: 06-19-2022 10:32-0400 Systolic blood pressure 130 mm[Hg] Dr. Ceasar Cristobal Work Phone: [facility] Work Phone: 03-14-2022 10:49-0400 Body height 185.42 cm ICU MANAGER-C Roxanna Brittany ICU MANAGER Work Phone: [facility] Work Phone: 03-14-2022 10:49-0400 Body mass index (BMI) [Ratio] 31.5 kg/m2 ICU MANAGER-C Roxanna Brittany ICU MANAGER Work Phone: [facility] Work Phone: 03-14-2022 10:49-0400 Body temperature 98.1 [degF] ICU MANAGER-C Roxanna Brittany ICU MANAGER Work Phone: [facility] Work Phone: 03-14-2022 10:49-0400 Body weight 108.52 kg ICU MANAGER-C Roxanna Brittany ICU MANAGER Work Phone: [facility] Work Phone: 03-14-2022 10:49-0400 Diastolic blood pressure 82 mm[Hg] ICU MANAGER-C Roxanna Brittany ICU MANAGER Work Phone: [facility] Work Phone: 03-14-2022 10:49-0400 Heart rate 83 /min ICU MANAGER-C Roxanna Brittany ICU MANAGER Work Phone: [facility] Work Phone: 03-14-2022 10:49-0400 Respiratory rate 16 /min ICU MANAGER-C Roxanna Brittany ICU MANAGER Work Phone: [facility] Work Phone: 03-14-2022 10:49-0400 SaO2% (BldA) [Mass fraction] 97 % ICU MANAGER-C Roxanna Brittany ICU MANAGER Work Phone: [facility] Work Phone: 03-14-2022 10:49-0400 Systolic blood pressure 138 mm[Hg] ICU MANAGER-C Roxanna Brittany ICU MANAGER Work Phone: [facility] Work Phone: 02-09-2022 10:56-0400 Body mass index (BMI) [Ratio] 30.6 kg/m2 ICU MANAGER-C Roxanna Brittany ICU MANAGER Work Phone: [facility] Work Phone: 02-09-2022 10:56-0400 Body temperature 97.6 [degF] ICU MANAGER-C Roxanna Brittany ICU MANAGER Work Phone: [facility] Work Phone: 02-09-2022 10:56-0400 Body weight 105.23 kg ICU MANAGER-C Roxanna Brittany ICU MANAGER Work Phone: [facility] Work Phone: 02-09-2022 10:56-0400 Diastolic blood pressure 120 mm[Hg] ICU MANAGER-C Roxanna Brittany ICU MANAGER Work Phone: [facility] Work Phone: 02-09-2022 10:56-0400 Heart rate 77 /min ICU MANAGER-C Roxanna Brittany ICU MANAGER Work Phone: [facility] Work Phone: 02-09-2022 10:56-0400 Respiratory rate 18 /min ICU MANAGER-C Roxanna Brittany ICU MANAGER Work Phone: [facility] Work Phone: 02-09-2022 10:56-0400 SaO2% (BldA) [Mass fraction] 98 % ICU MANAGER-C Roxanna Brittany ICU MANAGER Work Phone: [facility] Work Phone: 02-09-2022 10:56-0400 Systolic blood pressure 164 mm[Hg] ICU MANAGER-C Roxanna Brittany ICU MANAGER Work Phone: [facility] Work Phone: 02-09-2022 10:56-0400 Body height 185.42 cm ICU MANAGER-C Roxanna Brittany ICU MANAGER Work Phone: [facility] Work Phone: 02-09-2022 10:56-0400 Body mass index (BMI) [Ratio] 30.6 kg/m2 ICU MANAGER-C Roxanna Brittany ICU MANAGER Work Phone: [facility] Work Phone: 02-09-2022 10:56-0400 Body temperature 97.6 [degF] ICU MANAGER-C Roxanna Brittany ICU MANAGER Work Phone: [facility] Work Phone: 02-09-2022 10:56-0400 Body weight 105.23 kg ICU MANAGER-C Roxanna Brittany ICU MANAGER Work Phone: [facility] Work Phone: 02-09-2022 10:56-0400 Diastolic blood pressure 120 mm[Hg] ICU MANAGER-C Roxanna Brittany ICU MANAGER Work Phone: [facility] Work Phone: 02-09-2022 10:56-0400 Heart rate 77 /min ICU MANAGER-C Roxanna Brittany ICU MANAGER Work Phone: [facility] Work Phone: 02-09-2022 10:56-0400 Respiratory rate 18 /min ICU MANAGER-C Roxanna Brittany ICU MANAGER Work Phone: [facility] Work Phone: 02-09-2022 10:56-0400 SaO2% (BldA) [Mass fraction] 98 % ICU MANAGER-C Roxanna Brittany ICU MANAGER Work Phone: [facility] Work Phone: 02-09-2022 10:56-0400 Systolic blood pressure 164 mm[Hg] ICU MANAGER-C Roxanna Brittany ICU MANAGER Work Phone: [facility] Work Phone: Encounters Encounter Date Encounter Type Care Provider Facility Start: 07-20-2025 ambulatory Azam Durant Faci lity:[facility] Start: 07-02-2025 Encounter for genera l adult medical examination without abnormal findings [facility] Start: 07-02-2025 End: 07-02-[address] Ceasar Cristobal MD -[facility] Work Phone: Start: 07-02-2025 End: 07-02-[address] Ceasar Cristobal MD Work Phone: -[facility] Start: 03-04-2025 End: 03-04-[address] Ceaasr Cristobal MD Work Phone: [facility] Work Phone: Start: 03-04-2025 End: 03-04-[address] Azam Durant MD -Laboratory Work Phone: Start: 03-04-2025 End: 03-04-2025 ambulatory Ceasar Cristobal Facility:[facility] Start: 01-07-2025 End: 01-07-[address] Ceasar Cristobal MD -[facility] Work Phone: Start: 01-07-2025 End: 01-07-2025 ambulatory shahnaz Cristobal Facility:[facility] Start: 01-06-2025 End: 01-06-2025 Patient encounter procedure Sandro TILLEY [facility] Work Phone: Start: 01-06-2025 End: 01-[facility] [facility] Start: 01-05-2025 End: 01-05-[address] Ceasar Cristobal MD Work Phone: -Physical Therapy Start: 01-05-2025 End: 01-05-2025 Discharged Recurring Sandro TILLEY -Physical Therapy Work Phone: Start: 01-05-2025 Registered Recurring Sandro TILLEY -[facility] Work Phone: Start: 12-22-2024 End: 12-22-2024 Patient encounter procedure [facility]ro TLI[facility] Work Phone: Start: 12-22-2024 End: 12-22-2024 ambulatory Ceasar Cristobal Facility:[facility] Start: 12-15-2024 End: 12-15-2024 Patient encounter procedure Sandro TILLEY [facility] Work Phone: Start: 12-15-2024 End: 12-15-2024 ambulatory shahnaz Cristobal Facility:[facility] Start: 12-08-2024 End: 12-08-2024 Patient encounter procedure Sandro TILLEY [facility] Work Phone: Start: 12-08-2024 End: 12-08-[address] Ceasar Cristobal MD Work Phone: [facility] Work Phone: Start: 12-08-2024 End: 12-08-2024 ambulatory Sandro TILLEY Facility:[facility] Start: 09-17-2024 End: 09-17-[address] Ceasar Cristobal MD -[facility] Work Phone: Start: 09-17-2024 End: 09-17-2024 ambulatory Warrenmaxiphu Gonzalezbrandomann Facility:[facility] Start: 09-01-2024 End: 09-01-2024 Patient encounter procedure Cecille Bang -[facility], [place] Start: 09-01-2024 End: 09-01-2024 ambulatory Fabianaatholwade Cristobal Facility:[facility] Start: 01-09-2024 End: 01-09-[address] Ceasar Cristobal Work Phone: [facility] Work Phone: Start: 01-09-2024 End: 01-09-[address] Ceasar Cristobal Work Phone: [facility] [place] Start: 01-08-2024 End: 01-08-[address] Ceasar Cristobal Work Phone: [facility] Work Phone: Start: 07-11-2023 End: 07-11-[address] Ceasar Cristobal Work Phone: [facility] Work Phone: Start: 07-11-2023 End: 07-11-[address] Ceasar Cristobal Work Phone: [facility] [place] Start: 07-10-2023 End: 07-10-[address] Ceasar Cristobal Work Phone: [facility] Work Phone: Start: 04-03-2023 End: 04-03-[address] Ceasar Cristobal Work Phone: [facility] Work Phone: Start: 03-23-2023 End: 03-23-[address] Ceasar Cristobal Work Phone: [facility] Work Phone: Start: 03-23-2023 End: 03-23-[address] Ceasar Cristobal Work Phone: [facility] Start: 12-17-2022 End: 12-17-[address] Ceasar Cristobal Work Phone: [facility] Start: 06-19-2022 End: 06-19-[address] Ceasar Cristobal Work Phone: [facility] Start: 06-14-2022 End: 06-14-[address] Ceasar Cristobal Work Phone: [facility] Work Phone: Start: 06-14-2022 End: 06-14-[address] Ceasar Cristobal Work Phone: [facility] [place] Start: 05-04-2022 End: 05-04-2022 Patient encounter procedure ICU MANAGER-Rhett Soto ICU MANAGER Work Phone: [facility] [place] Start: 03-14-2022 End: 03-14-2022 Patient encounter procedure ICU MANAGER-Rhett Soto ICU MANAGER Work Phone: [facility] Start: 02-09-2022 Patient encounter status ICU MANAGER-C Roxanna Soto ICU MANAGER Work Phone: [facility] Start: 02-09-2022 End: 02-09-2022 Encounter for general adult medical examination without abnormal findings ICU MANAGER-Rhett Soto ICU MANAGER Work Phone: [facility] Start: 02-09-2022 End: 02-09-2022 Patient encounter procedure ICU MANAGER-C Roxanna Soto ICU MANAGER Work Phone: [facility] Procedures Date Procedure Procedure Detail Performing Clinician Start: 03-04-2025 Assay of prostate sp ecific antigen total Dr. Ceasar Cristobal MD Work Phone: Comment on above: This test was perfor med using the [employer] tPSA method. Measured values of a patient sample can vary depending on the testing procedure used. PSA values determined on patient samples by different testing procedures cannot be used interchangeably. If there is a change in PSA assays while monitoring therapy, sequential testing should be performed to confirm baseline values. Start: 03-04-2025 Prostate specific an tigen measurement Dr. Ceasar Cristobal MD Work Phone: Comment on above: This test was perfor med using the [employer] tPSA method. Measured values of a patient sample can vary depending on the testing procedure used. PSA values determined on patient samples by different testing procedures cannot be used interchangeably. If there is a change in PSA assays while monitoring therapy, sequential testing should be performed to confirm baseline values. Start: 12-08-2024 Plain X-ray of shoulder Dr. Ceasar Cristobal MD Work Phone: Plan of Treatment Date Care Activity Detail Author Start: 12-08-2024 Patient referral [facility] Work Phone: Start: 02-09-2022 Patient referral [facility] Work Phone: Basic metabolic 2008 panel with ionized calcium - Serum or Plasma [facility] Blood chemistry [facility] Work Phone: CBC W Auto Different ial panel - Blood [facility] Comprehensive metabo lic 2000 panel - Serum or Plasma [facility] Lipid 1996 panel - S piotr or Plasma [facility] Patient referral [facility] Work Phone: Immunizations Immunization Date Immunization Notes Care Provider Fa rosanne 07-08-2023 influenza, injectabl e, quadrivalent, preservative free Dr. Ceasar Cristobal Work Phone: [facility] 06-17-2022 Covid (Pfizer) Dr. Ceasar Cristobal Work Phone: [facility] Payers Date Payer Category Payer Unknown [id number] 2024 Self-pay [id number] 2024 Unknown [id number] Unknown [id number] Unknown [id number] 2.16.8 [id number] Unknown [id number] 2.16.8 [id number] Unknown [id number] 2.16.8 [id number] Unknown [id number] 2.16.8 [id number] Unknown [id number] 2.16.8 [id number] Unknown [id number] 2.16.8 [id number] Unknown [id number] 2.16.8 [id number] Unknown [id number] 2.16.8 [id number] Unknown [id number] 2.16.8 [id number] Unknown [id number] 2.16.8 [id number] Unknown [id number] 2.16.8 [id number] Unknown [id number] 2.16.8 [id number] Social History Date Type Detail Facility Start: 02-09-2022 End: 01-08-2024 Tobacco smoking status NHIS Unknown if ever smoked [facility] Start: 1960 Sex Assigned At Male [facility] [place] Start: 12-08-2024 Tobacco smoking stat us NHIS Ex-smoker (finding) [facility] Start: 12-18-2024 Sex Male (finding) [facility] Sex Male [facility] Clinical Notes 09-17-2024 to 01-07-2025 Note Date & Type Note Facility 01-07-2025 Evaluation note Diagnosis Onset Date Resolution BPH (benign prostatic hyperplasia) chronic January 07, 2025 4:23pm Generalized anxiety disorder chronic January 07, 2025 4:23pm Hyperlipidemia chronic December 4:23pm Hypertension chronic January 07, 2025 4:23pm [facility] Work Phone: 1(761) 144-322803-11-2025 Evaluation note* Diagnosis Onset Date Resolution Status Admit Date Right shoulder strain acute Mar 2024 12:46pm BPH (benign prostatic hyperplasia) chronic January 07, 2025 4:23pm Generalized anxiety disorder chronic January 07, 2025 4:23pm Hyperlipidemia chronic December 4:23pm Hypertension chronic January 07, 2025 4:23pm [facility] Work Phone: 1(758) 249-986703-11-2025 Radiology Diagnostic study note [facility] Imaging Services [address] [place] [address] [id number] Shoulder min 2 Views MR#: [id number] Acct: [id number] Name: LANI SILVA III Rep #: [id number] : 1960 M 64 From: Terry Mendoza MD PCP: Dr. Ceasar Cristobal MD Status: R EG CLI Study:Shoulder min 2 Views Date of Exam: 12/08/24 Exam# [id number] Ordering Dr: St landon Lyles PROCEDURE: SHOULDER MIN 2 VIEWS REASON FOR EXAM: PAIN Remote injury. TECHNIQUE: Four views of the right shoulder were obtained. COMPARISON: None. FINDINGS: RIGHT SHOULDER: No fracture. No suspicious bone lesion. Normal alignment of the acromioclavicular and glenohumeral joints. Soft tissues are unremarkable. RAD/Shoulder min 2 Views IMPRESSION: NO ACUTE FRACTURE OR DISLOCATION. Reading Location: [facility] CC: Dr. 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 [facility] Work Phone: Evaluation note* Diagnosis Onset Date Resolution Status Health care maintenance acut e Hypertension chronic 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 sleep apnea 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 Bilateral lower extremity edema acute Hyperlipidemia acute Hypertension [facility] Work Phone: Evaluation note* Diagnosis Onset Date Resolution Status Bilateral lower extremity edema acute Hyperlipidemia acute Hypertension chronic Bilateral lower extremity edema acute Hypertension [facility] Work Phone: Evaluation note* Diagnosis Onset Date Resolution Status Grief reaction acute Hyperlipidemia chronic Hypertension [facility] Work Phone: Evaluation note* Diagnosis Onset Date Resolution Status Grief reaction acute Hyperglycemia acute Generalized anxiety disorder chronic Hyperlipidemia chronic Hypertension chronic Impacted cerumen of left ear acute BPH (benign prostatic hyperplasia) chronic Generalized anxiety disorder chronic Hyperlipidemia chronic Hypertension [facility] Work Phone: Evaluation note* Diagnosis Onset Date Resolution Status Tobacco abuse acute BPH (benign prostatic hyperplasia) chronic Generalized anxiety disorder chronic Hyperlipidemia chronic Hypertension [facility] Work Phone: Evaluation noteNo assessment information available [facility] Work Phone[facility] [place] [facility] [place] Work Phone: Hospital Discharge instructionsAmbulatory Orders* Dermatology Location: None Selected * Gastroenterology Location: None Selected [facility] Work Phone: Reason for referral (narrative)No reason for referral information availableWKing[facility] [place] Work Phone: Summary Purpose Family History No Family History Records Found Relationship Condition Age at Onset Recorded Date/T shayy grandfather Alcoholism in family Unknown Lymphoma Unknown grandmother Alcoholism in family Unknown mother Anxiety Unknown Family history of ma lignant neoplasm of cervix Unknown Diabetes mellitus Unknown father Diabetes mellitus Unknown Advance Directives No Advanced Directives Records FoundNo Advanced Directives Records Found Chief Complaint and Reason for Visit Chief Complaint 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, 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,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 Reason for Visit Health care maintena nce Hypertension Obstructive sleep apnea Chief Complaint 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, 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,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 1 M FU Reason for Visit Health care maintena nce Hypertension Obstructive sleep apnea Bilateral lower extremity edema Hyperlipidemia Hypertension Chief Complaint 1 M FU 3 M FU Reason for Visit Bilateral lower extr emity edema Hyperlipidemia Hypertension Bilateral lower extremity edema Hypertension Chief Complaint 6 M FU EORDER Reason for Visit Grief reaction Hyperlipidemia Hypertension Chief Complaint EORDER 3 M FU 3 M FU Reason for Visit Grief reaction Hyperglycemia Generalized anxiety disorder Hyperlipidemia Hypertension Impacted cerumen of left ear BPH (benign prostatic hyperplasia) Generalized anxiety disorder Hyperlipidemia Hypertension Chief Complaint 6 M FU Reason for Visit Tobacco abuse BPH (benign prostatic hyperplasia) Generalized anxiety disorder Hyperlipidemia Hypertension Chief Complaint Admit Date 4 M FU September 17, 2024 3:50pm RIGHT SHOULDER INJURY/ROCIO BRUSH Jareth h 2024 12:46pm pain- RIGHT SHOULDER December 08, 2024 1: 18pm 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 December 15, 2024 4:26pm Reason for Visit Admit Date BPH (benign prostatic hyperplasia) Decem 2023 3:50pm Generalized anxiety disorder September 172023 3:50pm Hyperlipidemia September 17, 2024 3:50pm Hypertension September 17, 2024 3:50pm Right shoulder strain December 08, 2024 1 2:46pm Chief Complaint Admit Date RIGHT SHOULDER INJURY/ROCIO BRUSH Jareth h 2024 12:46pm pain- RIGHT SHOULDER December 08, 2024 1: 18pm 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 December 15, 2024 4:26pm 1 W FU/ROCIO BRUSH December 22, 2024 4: 22pm R SHLD STRAIN/RX HERE January 05, 2025 4: 00pm 2 W FU/ROCIO BRUSH January 06, 2025 4:2 3pm 4 M FU January 07, 2025 4:2 3pm E-ORDER AND PSA March 04, 2025 4:15p m Reason for Visit Admit Date Right shoulder strain December 08, 2024 1 2:46pm BPH (benign prostatic hyperplasia) January 07, 2025 4:23pm Generalized anxiety disorder January 07, 2025 4:23pm Hyperlipidemia January 07, 2025 4:2 3pm Hypertension January 07, 2025 4:2 3pm Chief Complaint Admit Date R SHLD STRAIN/RX HERE January 05, 2025 4: 00pm 2 W FU/ROCIO BRUSH January 06, 2025 4:2 3pm 4 M FU January 07, 2025 4:2 3pm E-ORDER AND PSA March 04, 2025 4:15p m Reason for Visit Admit Date BPH (benign prostatic hyperplasia) January 07, 2025 4:23pm Generalized anxiety disorder January 07, 2025 4:23pm Hyperlipidemia January 07, 2025 4:2 3pm Hypertension January 07, 2025 4:2 3pm Chief Complaint Admit Date E-ORDER AND PSA March 04, 2025 4:15p m FOLLOW UP July 02, 2025 2: 28pm Additional Source Comments (unrecognized sect ion and content) No Status Records FoundNo Status Records Found INFORMATION SOURCE (unrecogn ized section and content) DATE CREATED AUTHOR 05/14/2019 [facility] ([place]) DATE CREATED AUTHOR AUTHOR'S ORGANIZ ATION 07/20/2025 [facility] Goals (unrecognized section and content) Goals may be documented in a n alternate sectionGoals may be documented in an alternate sectionGoals may be documented in an alternate sectionGoals may be documented in an alternate sectionGoals may be documented in an alternate sectionGoals may be documented in an alternate sectionGoals may be documented in an alternate sectionGoals may be documented in an alternate sectionGoals may be documented in an alternate sectionGoals may be documented in an alternate section Care Teams (unrecognized sec tion and content) Team Status: Active Member Role Status Dates Dr. Winston Cooper MD Family Provider Active Dr. Ceasar Cristobal MD Primary Care Provider Active Team Status: Inactive Member Role Status Dates Dr. Ceasar Cristobal MD Primary Care P rovider, Attending Provider, Referring Provider Active Team Status: Inactive Member Role Status Dates Dr. Ceasar Cristobal MD Primary Care Provider, Atten ding Provider Active Team Status: Active Member Role Status Dates Dr. Ceasar Cristobal MD Primary Care Provider Active Team Status: Inactive Member Role Status Dates Dr. Ceasar Cristobal MD Primary Care Provider Active Start: September 01, 2024 End: September 01, 2024 Cecille Ceres Attending Provider Active Start : September 01, 2024 End: September 01, 2024 Cecille Wilkersoning Referring Provider Active Start : September 01, 2024 End: September 01, 2024 Team Status: Inactive Member Role Status Dates Dr. Ceasar Cristobal MD Primary Care Provider Active Start: September 17, 2024 End: September 17, 2024 Dr. Ceasar Cristobal MD Attending Provider Active Start: September 17, 2024 End: September 17, 2024 Dr. Ceasar Cristobal MD Referring Provider Active Start: September 17, 2024 End: September 17, 2024 Team Status: Inactive Member Role Status Dates Dr. Ceasar Cristobal MD Primary Care Provider Active Start: December 08, 2024 End: December 08, 2024 Dr. Ceasar Cristobal MD Referring Provider Active Start: December 08, 2024 End: December 08, 2024 JAREK Burrows Attending Provider Active Start: December 08, 2024 End: December 08, 2024 Team Status: Inactive Member Role Status Dates Dr. Ceasar Cristobal MD Primary Care Provider Active Start: December 08, 2024 End: December 08, 2024 JAREK Burrows Attending Provider Active Start: December 08, 2024 End: December 08, 2024 JAREK Burrows Referring Provider Active Start: December 08, 2024 End: December 08, 2024 Team Status: Inactive Member Role Status Dates Dr. Ceasar Cristobal MD Primary Care Provider Active Start: December 15, 2024 End: December 15, 2024 Dr. Ceasar Cristobal MD Referring Provider Active Start: December 15, 2024 End: December 15, 2024 JAREK Burrows Attending Provider Active Start: December 15, 2024 End: December 15, 2024 Team Status: Inactive Member Role Status Dates Dr. Ceasar Cristobal MD Primary Care Provider Active Start: December 22, 2024 End: December 22, 2024 Dr. Ceasar Crisotbal MD Referring Provider Active Start: December 22, 2024 End: December 22, 2024 Sandro TILLEY PA Attending Provider Active Start: December 22, 2024 End: December 22, 2024 Team Status: Active Member Role Status Dates Dr. Ceasar Cristobal MD Primary Care Provider Active Start: January 05, 2025 Sandro TILLEY PA Attending Provider Active Start: January 05, 2025 JAREK Burrows Referring Provider Active Start: January 05, 2025 Team Status: Inactive Member Role Status Dates Dr. Ceasar Cristobal MD Primary Care Provider Active Start: January 06, 2025 End: January 06, 2025 Dr. Ceasar Cristobal MD Referring Provider Active Start: January 06, 2025 End: January 06, 2025 JAREK Burrows Attending Provider Active Start: January 06, 2025 End: January 06, 2025 Team Status: Inactive Member Role Status Dates Dr. Ceasar Cristobal MD Primary Care Provider Active Start: January 07, 2025 End: January 07, 2025 Dr. Ceasar Cristobal MD Attending Provider Active Start: January 07, 2025 End: January 07, 2025 Dr. Ceasar Cristobal MD Referring Provider Active Start: January 07, 2025 End: January 07, 2025 Team Status: Inactive Member Role Status Dates Dr. Ceasar Cristobal MD Primary Care Provider Active Start: March 04, 2025 End: March 04, 2025 Dr. Ceasar Cristobal MD Other Provider Active Start: March 04, 2025 End: March 04, 2025 Dr. Azam Durant MD Attending Provider Active Start: March 04, 2025 End: March 04, 2025 Dr. Azam Durant MD Referring Provider Active Start: March 04, 2025 End: March 04, 2025 Team Status: Active Member Role/Relationship Status Dates Dr. Ceasar Cristobal MD Primary Care Provider Active Team Status: Inactive Member Role/Relationship Status Dates Dr. Ceasar Cristobal MD Primary Care Provider Active Start: January 05, 2025 End: January 05, 2025 JAREK Burrows Attending Provider Active Start: January 05, 2025 End: January 05, 2025 JAREK Burrows Referring Provider Active Start: January 05, 2025 End: January 05, 2025 Team Status: Inactive Member Role/Relationship Status Dates Dr. Ceasar Cristobal MD Primary Care Provider Active Start: January 06, 2025 End: January 06, 2025 Dr. Ceasar Cristobal MD Referring Provider Active Start: January 06, 2025 End: January 06, 2025 JAREK Burrows Attending Provider Active Start: January 06, 2025 End: January 06, 2025 Team Status: Inactive Member Role/Relationship Status Dates Dr. Ceasar Cristobal MD Primary Care Provider Active Start: January 07, 2025 End: January 07, 2025 Dr. Ceasar Cristobal MD Attending Provider Active Start: January 07, 2025 End: January 07, 2025 Dr. Ceasar Cristobal MD Referring Provider Active Start: January 07, 2025 End: January 07, 2025 Team Status: Inactive Member Role/Relationship Status Dates Dr. Ceasar Cristobal MD Primary Care Provider Active Start: March 04, 2025 End: March 04, 2025 Dr. Ceasar Cristobal MD Other Provider Active Start: March 04, 2025 End: March 04, 2025 Dr. Azam Durant MD Attending Provider Active Start: March 04, 2025 End: March 04, 2025 Dr. Azam Durant MD Referring Provider Active Start: March 04, 2025 End: March 04, 2025 Team Status: Active Member Role/Relationship Status Dates Dr. Ceasar Cristobal MD Primary care physician Activ e Team Status: Inactive Member Role/Relationship Status Dates Dr. Ceasar Cristobal MD Primary care physician Activ e Start: March 04, 2025 End: March 04, 2025 Dr. Ceasar Cristobal MD Nurse Practitioner Active Start: March 04, 2025 End: March 04, 2025 Dr. Azam Durant MD Attending physician Active Start: March 04, 2025 End: March 04, 2025 Dr. Azam Durant MD Referring Provider Active Start: March 04, 2025 End: March 04, 2025 Team Status: Inactive Member Role/Relationship Status Dates Dr. Ceasar Cristobal MD Primary care physician Activ e Start: July 02, 2025 End: July 02, 2025 Dr. Ceasar Cristobal MD Attending physician Active Start: July 02, 2025 End: July 02, 2025 Dr. Ceasar Cristobal MD Referring Provider Active Start: July 02, 2025 End: July 02, 2025 FOR RECORDS PERTAINING TO PATIENTS WHO ARE OR HAVE BEEN ENROLLED IN A CHEMICAL DEPENDENCY/SUBSTANCEABUSE PROGRAM, SOME INFORMATION MAY BE OMITTED. This clinical summary was aggregated from multiple sources. Caution should be exercised in using it in the provision of clinical care. This summary normalizes information from multiple sources, and as a consequence, information in this document may materially change the coding, format and clinical context of patient data. In addition, data may be omitted in some cases. CLINICAL DECISIONS SHOULD BE BASED ON THE PRIMARY CLINICAL RECORDS. [facility] [employer] provides no warranty or guarantee of the accuracy or completeness of information in this document.
== END | disposition home or self-care (01) ==
PROVIDERS: PCP Internal Medicine; Referring Provider Urology; Visit Provider Urology
DX: R97.20 Elevated prostate specific antigen [PSA] (principal)
CPT/HCPCS: 70030; 72197; A9575; A4216

== ENCOUNTER → 2025-08-10 | Outpatient (CLI) | payer BC, SELFPAY ==
[2025-08-10 18:03] LABS: Hematocrit 42.1 % (40-54); Hemoglobin 15.2 g/dL (13.0-16.5); Immature Granulocytes Count 0.020 X10^3/uL (0.0-0.0); Mean Corp Hgb Conc 36.1 g/dL (32-36); Mean Corpuscular Volume 85.6 fL (80-94); Mean Platelet Vol. 9.3 fl (6.2-12.0); NRBC Flagged by Analyzer 0 % (0-5); Platelet Count 205 K/mm3 (150-450); RBC Distribution Width CV 13.0 % (11.6-14.6); RBC Distribution Width SD 39.9 fl (35.1-43.9); Red Blood Count 4.92 M/mm3 (4.6-6.2); White Blood Count 8.5 K/mm3 (4.4-11.0)
[2025-08-10 18:28] LABS: AST(SGOT) 15 U/L (<=37); Alanine Aminotransfer ALT/SGPT 12 U/L (<=46); Albumin, Serum 4.5 g/dL (3.4-4.8); Alkaline Phosphatase 66 U/L (40-129); Anion Gap 13 (5-15); BUN 16 mg/dL (4-19); BUN/Creat Ratio 16.1 RATIO (10-20); Calcium,Total 9.0 mg/dL (7.6-11.0); Carbon Dioxide 26.1 mmol/L (21.0-32.0); Chloride 100 mmol/L (98-108); Cholesterol 112 mg/dL (<=200); Globulin 2.5 g/dL (2.2-4.2); Glucose 106 mg/dL (70-99); Low Density Lipoprotein Calc. 46 mg/dL; Potassium 3.0 mmol/L (3.3-5.1); Triglycerides 227 mg/dL; Very Low Density Lipoprotein 45 mg/dL (5-40); cholesterol:hdl ratio screen 3.71
== END | disposition home or self-care (01) ==
LOC: MTLAB 14:55
PROVIDERS: PCP Internal Medicine; Referring Provider Internal Medicine; Visit Provider Internal Medicine
DX: I10 Essential (primary) hypertension (principal)
CPT/HCPCS: 36415; 80053; 80061; 85025